=== PATIENT | female | born 1940 | race Caucasian/White ===

== ENCOUNTER 2017-09-04 20:14 | Observation (INO) ==
[2017-09-04 20:48] LABS: Basophils % 0.2 %; Eosinophils % 0.2 %; Hematocrit 39.4 % (35.3-44.9); Lymphocytes # 1.2 K/mcL (0.6-4.6); Lymphocytes % 8.4 %; Mean Corpuscular Hemoglobin 29.3 pg (28.0-33.3); Mean Corpuscular Volume 88.7 fL (83.0-100.0); Mean Platelet Volume 9.5 fL (9.4-12.4); Monocytes % 7.3 %; Neutrophils # 11.6 K/mcL (1.6-8.9); Platelet Count 351 K/mcL (140-400); Red Blood Count 4.44 M/mcL (3.82-4.97); Red Cell Distribution Width 13.4 % (11.5-14.5); Segmented Neutrophils % 82.9 %
[2017-09-04 21:06] LABS: Alanine Aminotransferase 24 Units/L (7-52); Albumin 2.7 g/dL (3.5-5.7); Albumin/Globulin Ratio 0.6 (1.1-2.2); Alkaline Phosphatase 174 Units/L (34-104); Aspartate Amino Transferase 47 Units/L (13-39); BUN/Creatinine Ratio 25 (6-26); Bilirubin,Total 0.6 mg/dL (0.3-1.0); Blood Urea Nitrogen 16 mg/dL (8-23); Calcium 8.8 mg/dL (8.6-10.3); Carbon Dioxide 27 mEq/L (23-29); Chloride 104 mEq/L (98-107); Creatine Kinase 163 Units/L (30-223); Globulin 4.4 g/dL (2.4-3.5); Glucose 84 mg/dL (70-105); Osmolality,Calculated 288 (280-300); Potassium 3.1 mEq/L (3.5-5.1); Sodium 139 mEq/L (136-145); Total Protein 7.1 g/dL (6.4-8.9); eGFR For African Americans > 60 (> 60); eGFR For Non-African Americans > 60 (> 60)
[2017-09-04 21:11] LABS: Troponin I 0.04 ng/mL (< 0.04)
--- NOTE | 2017-09-04 21:33 | Emergency Department Note ---
Disposition Clinical Impression: Generalized weakness Disposition: Admitted As Inpatient Referrals: Huy Jack MD [Primary Care Provider] - Forms: ED Satisfaction Letter Weakness HPI - General Chief complaint: ED Weakness Stated complaint: generalized weakness Time Seen by Provider: 09/04/17 20:15 Source: patient, family Limitations: no limitations Nursing Notes Reviewed: Yes Vital Signs Reviewed: Yes - History of Present Illness HPI Narrative: 68 year female past medical history CHF, diabetes, and hypertension, presents the emergency department with a 2 week history of generalized weakness. Family states that the last 3 or 4 days have been even worse. Associated symptoms include increased confusion, dyspnea, labored breathing, intermittent cough, nausea, diffuse abdominal pain, right hip pain, and increased LE edema bilaterally. She denies any focal weakness, dysphagia, or dysarthria. She denies fevers, chills, chest pain, vomiting, change in bowels, hematochezia, or melena. Pain Scale: 2 - Related Data Home Medications Medication Instructions Recorded Confirmed Ascorbate Calcium [Vitamin C] 500 mg PO BID 10/31/15 10/31/15 Garlic [Odor Free Garlic] 100 mg PO BID 10/31/15 10/31/15 Glimepiride [Amaryl] 0.5 mg PO BID 10/31/15 10/31/15 Glucosamine HCl/Chondr Pinon A Na 1 each PO BID 10/31/15 10/31/15 [[facility] Glucosamine-Chondr Tablet] Meclizine HCl [Verticalm] 25 mg PO DAILY PRN 10/31/15 10/31/15 Metoprolol [Lopressor] 50 mg PO BID 10/31/15 10/31/15 Previous Rx's Medication Instructions Recorded Ciprofloxacin [Cipro] 500 mg PO BID #14 tablet 11/01/15 metroNIDAZOLE [Flagyl] 500 mg PO TID #21 tablet 11/01/15 Allergies Allergy/AdvReac Type Severity Reaction Status Date / Time Sulfa (Sulfonamide Allergy Hives Verified 10/31/15 07:53 Antibiotics) codeine AdvReac Hallucinati Verified 10/31/15 07:53 ng All systems ED: reviewed and negative except as stated. Review of Systems: As Per HPI Past Medical History - Past Medical History Medical history: Reports: CHF, diabetes, hypertension Surgical history: Reports: herniorrhaphy Psychiatric history: Reports: no psych history - Social History Smoking Status: Never smoker Smokeless Tobacco Status: No Alcohol use: Reports: none Drug use: Reports: none Physical Exam - General Limitations: no limitations General appearance: alert, in no apparent distress - Head Head exam: atraumatic, normocephalic, normal inspection - Eye Eye exam: Present: normal appearance, EOMI. Absent: scleral icterus, conjunctival injection - ENT ENT exam: mucous membranes dry - Chest Chest inspection: Present: symmetric chest wall rise - Expanded Respiratory Exam Location: decreased breath sounds: Left, Right, Upper, Lower - Cardiovascular Cardiovascular exam: Present: regular rate, normal rhythm, +S1, +S2 - Abdominal Exam Abdominal exam: Present: soft, tenderness. Absent: guarding, rebound, rigidity , Obando's sign, Rovsing's sign, tenderness at McBurney's Point Abdominal tenderness: Present: diffuse, moderate - Extremities Exam Extremities exam: Present: pedal edema (Pitting edema in bilateral lower extremities). Absent: full ROM, tenderness, normal capillary refill - Neurological Exam Neurological exam: Present: alert, oriented X3 - Skin Skin exam: Present: warm, dry, intact, normal color Course Vital Signs Temperature 98.4 F 09/04/17 20:16 Pulse Rate 78 09/04/17 20:16 Respiratory Rate 22 09/04/17 20:16 Blood Pressure 197/81 09/04/17 20:16 O2 Sat by Pulse Oximetry 94 09/04/17 20:16 Temperature 98.4 F 09/04/17 20:16 Pulse Rate 75 09/04/17 22:31 Respiratory Rate 22 09/04/17 22:31 Blood Pressure 167/75 09/04/17 22:31 O2 Sat by Pulse Oximetry 97 09/04/17 22:31 Oxygen Delivery Oxygen Delivery Nasal Cannula Weakness - MDM Narrative Medical decision making narrative: CBC shows mild elevation of white count at 13.9, but no anemia. BMP shows hypokalemia at 3.1, this is replace potassium. Mild elevations of AST and alkaline phosphatase. Urinalysis still pending at this time due to a complication with the machine and the lab. Albumin is low at 2.7. Troponin 0.04. ECG shows sinus rhythm with left axis deviation and left bundle branch block, but no ST elevation or depression. Chest x-ray shows mild bibasilar atelectasis with no consolidations. CT the abdomen and pelvis completed on 3/8/ 18 showed concerns with a cirrhotic liver with new low attenuation lesions throughout that mentioned concerns for hepatocellular carcinoma versus metastasis. No known history of cancer. Nonfocal exam. Etiology of her constellation of symptoms is not entirely clear at this point, given her increase in extremity edema findings on recent CT her symptoms are at least in part hepatic in nature. Patient will be admitted to the hospital for further evaluation and treatment. - Lab Data Lab results reviewed: Yes I reviewed the patient's lab results. Result diagrams: 09/04/17 20:39 09/04/17 20:39 Lab Results 09/04/17 09/04/17 09/04/17 Range/Units 20:39 20:39 20:39 WBC 13.9 H (4.3-11.1) K/mcL RBC 4.44 (3.82-4.97) M/mcL Hgb 13.0 (11.5-15.4) g/dL Hct 39.4 (35.3-44.9) % MCV 88.7 (83.0-100.0) fL MCH 29.3 (28.0-33.3) pg MCHC 33.0 (31.6-35.5) g/dL RDW 13.4 (11.5-14.5) % Plt Count 351 (140-400) K/mcL MPV 9.5 (9.4-12.4) fL Immature Gran % 1.0 (0-4) % Seg Neutrophils % 82.9 % Lymphocytes % 8.4 % Monocytes % 7.3 % Eosinophils % 0.2 % Basophils % 0.2 % Neutrophils # 11.6 H (1.6-8.9) K/mcL Lymphocytes # 1.2 (0.6-4.6) K/mcL Monocytes # 1.0 (0.0-1.3) K/mcL Eosinophils # 0.0 (0.0-0.6) K/mcL Basophils # 0.0 (0.0-0.2) K/mcL Sodium 139 (136-145) mEq/L Potassium 3.1 L (3.5-5.1) mEq/L Chloride 104 (98-107) mEq/L Carbon Dioxide 27 (23-29) mEq/L BUN 16 (8-23) mg/dL Creatinine 0.64 (0.60-1.20) mg/dL Est GFR ( Amer) > 60 (> 60) Est GFR (Non-Af Amer) > 60 (> 60) BUN/Creatinine Ratio 25 (6-26) Glucose 84 (70-105) mg/dL Calculated Osmolality 288 (280-300) Lactic Acid 1.4 (0.5-2.2) mmol/L Calcium 8.8 (8.6-10.3) mg/dL Total Bilirubin 0.6 (0.3-1.0) mg/dL AST 47 H (13-39) Units/L ALT 24 (7-52) Units/L Alkaline Phosphatase 174 H (34-104) Units/L Creatine Kinase 163 (30-223) Units/L Troponin I 0.04 H* (< 0.04) ng/mL Serum Total Protein 7.1 (6.4-8.9) g/dL Albumin 2.7 L (3.5-5.7) g/dL Globulin 4.4 H (2.4-3.5) g/dL Albumin/Globulin Ratio 0.6 L (1.1-2.2) Urine Color (Yellow) Urine Clarity (Clear) Urine pH (5.0-8.0) pH Units Ur Specific Hope (1.010-1.025) Urine Protein (Neg-Trace) mg/dL Urine Glucose (UA) (Normal) mg/dL Urine Ketones (Negative) mg/dL Urine Blood (Negative) Urine Nitrite (Negative) Urine Bilirubin (Negative) Urine Urobilinogen (Normal) mg/dL Ur Leukocyte Esterase (Negative) Urine Microscopic RBC (0-3) per hpf Urine Microscopic WBC (0-3) per hpf Ur Squamous Epith Cells (None-Few) per lpf Urine Bacteria (None-Few) per hpf Hyaline Casts (None-Few) per lpf Ur Culture Indicated? (NO) 09/04/17 Range/Units 21:10 WBC (4.3-11.1) K/mcL RBC (3.82-4.97) M/mcL Hgb (11.5-15.4) g/dL Hct (35.3-44.9) % MCV (83.0-100.0) fL MCH (28.0-33.3) pg MCHC (31.6-35.5) g/dL RDW (11.5-14.5) % Plt Count (140-400) K/mcL MPV (9.4-12.4) fL Immature Gran % (0-4) % Seg Neutrophils % % Lymphocytes % % Monocytes % % Eosinophils % % Basophils % % Neutrophils # (1.6-8.9) K/mcL Lymphocytes # (0.6-4.6) K/mcL Monocytes # (0.0-1.3) K/mcL Eosinophils # (0.0-0.6) K/mcL Basophils # (0.0-0.2) K/mcL Sodium (136-145) mEq/L Potassium (3.5-5.1) mEq/L Chloride (98-107) mEq/L Carbon Dioxide (23-29) mEq/L BUN (8-23) mg/dL Creatinine (0.60-1.20) mg/dL Est GFR ( Amer) (> 60) Est GFR (Non-Af Amer) (> 60) BUN/Creatinine Ratio (6-26) Glucose (70-105) mg/dL Calculated Osmolality (280-300) Lactic Acid (0.5-2.2) mmol/L Calcium (8.6-10.3) mg/dL Total Bilirubin (0.3-1.0) mg/dL AST (13-39) Units/L ALT (7-52) Units/L Alkaline Phosphatase (34-104) Units/L Creatine Kinase (30-223) Units/L Troponin I (< 0.04) ng/mL Serum Total Protein (6.4-8.9) g/dL Albumin (3.5-5.7) g/dL Globulin (2.4-3.5) g/dL Albumin/Globulin Ratio (1.1-2.2) Urine Color Yellow (Yellow) Urine Clarity Cloudy A (Clear) Urine pH 5.5 (5.0-8.0) pH Units Ur Specific [place] 1.026 H (1.010-1.025) Urine Protein 100 H (Neg-Trace) mg/dL Urine Glucose (UA) Normal (Normal) mg/dL Urine Ketones Negative (Negative) mg/dL Urine Blood Negative (Negative) Urine Nitrite Negative (Negative) Urine Bilirubin Negative (Negative) Urine Urobilinogen Normal (Normal) mg/dL Ur Leukocyte Esterase Negative (Negative) Urine Microscopic RBC 0-3 (0-3) per hpf Urine Microscopic WBC 0-3 (0-3) per hpf Ur Squamous Epith Cells Many H (None-Few) per lpf Urine Bacteria None Seen (None-Few) per hpf Hyaline Casts Few (None-Few) per lpf Ur Culture Indicated? NO (NO) - Radiology Data Radiology results reviewed: Yes I reviewed the patient's radiology results. Chest x-ray shows mild bibasilar atelectasis. - EKG Data EKG attestation: Yes I reviewed and interpreted this EKG. EKG shows normal: sinus rhythm, ST-T waves Rate: normal [place]/QRS: left axis deviation, LBBB Attestation Statement - Attestation Attestation: I, Maninder Warren, examined this patient and my medical decision-making was reviewed with the DIMPLING MACHINE OPERATOR/PA/Advanced Practice Nurse/Resident Physician. I agree with the documented findings, disposition and treatment plan as described except to the extent set forth below. 76-year-old female presents emergency Department with concerns of generalized weakness, fatigue, abdominal pain. Patient had CT of the abdomen performed within the past few days which was negative for acute surgical pathology however did show evidence of cirrhosis and ventral hernia, diverticulosis without diverticulitis. Patient is unable to give a history regarding her case and presentation secondary to increased confusion. She is moving all extremities. Patient has a significant amount of pitting edema bilateral lower extremities. O2 saturation is 98% on 2 L nasal cannula. X-ray of the chest did not show significant infiltrate or other abnormality. Urinalysis was negative for UTI. Patient had elevated troponin at 0.04. Her EKG showed a left bundle-branch block was which was not new from previous exam. Patient will likely be admitted to the hospitalist for further care and evaluation.
[2017-09-04 22:37] LABS: Bilirubin,Urine Negative (Negative); Blood,Urine Negative (Negative); Clarity,Urine Cloudy (Clear); Color,Urine Yellow (Yellow); Glucose,Urine (UA) Normal (Normal); Ketones,Urine Negative (Negative); Leukocyte Esterase,Urine Negative (Negative); Nitrite,Urine Negative (Negative); PH,Urine 5.5 pH Units (5.0-8.0); Protein,Urine 100 mg/dL (Neg-Trace); Specific Gravity,Urine 1.026 (1.010-1.025); Urobilinogen,Urine Normal (Normal)
[2017-09-04 22:44] LABS: Bacteria,Urine None Seen per hpf (None-Few); Hyaline Casts,Urine Few per lpf (None-Few); RBC,Urine 0-3 per hpf (0-3); Squamous Epithelial Cell,Urine Many per lpf (None-Few); WBC,Urine 0-3 per hpf (0-3)
[2017-09-05] MEDS ORDERED: Naloxone 0.4 MG/ML INJ IVP PRN (00:55)
[2017-09-05] MEDS ORDERED: Ringers Solution, Lactated 1,000 ML IVC SCH (01:00)
--- NOTE | 2017-09-05 01:02 | Internal Med History&Physical ---
Date of Encounter: 09/05/17 Time of Encounter: 00:45 Assessment and Plan (1) Abdominal pain Current visit: Yes Status: Acute No acute process per CT scan but patient does have tenderness to palpation on examination. Could be related to abnormal lesions seen him CT scan of the abdomen and pelvis. Will obtain MRI of the abdomen and pelvis. Keep nothing by mouth. Symptomatic treatment for pain and nausea. Moderate risk for complications. Qualifiers: Abdominal location: right lower quadrant Qualified Code(s): R10.31 - Right lower quadrant pain (2) Generalized weakness Current visit: Yes Status: Acute Progressive over the past couple of weeks. Could be related to abnormal lesions. Will consult physical therapy for evaluation. Gentle IV hydration. (3) Cirrhosis of liver Current visit: Yes Status: Chronic CT scan of the abdomen to assess presence of cirrhosis. 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 We will also get hepatitis viral panel. Qualifiers: Hepatic cirrhosis type: unspecified hepatic cirrhosis Ascites presence: unspecified Qualified Code(s): K74.60 - Unspecified cirrhosis of liver (4) Abnormal CT of liver Current visit: Yes Status: Acute Abnormal liver lesions present on CT scan. Will get MRI of the abdomen with liver protocol (5) Diabetes mellitus, type II Current visit: Yes Status: Chronic Monitor blood sugars. Sliding scale insulin. Diabetic diet when patient is able to eat. Qualifiers: Diabetes mellitus senior living insulin use: without senior living use Diabetes mellitus complication status: with hyperglycemia Qualified Code(s): E11.65 - Type 2 diabetes mellitus with hyperglycemia (6) Essential hypertension Current visit: Yes Status: Acute Monitor blood pressure. Resume home medications. (7) Hematuria Current visit: Yes Status: Suspected Recent reports hematuria. However urinalysis in August showing red blood cells. We will monitor for now. Follow results of MRI of her abdomen. Qualifiers: Hematuria type: gross Qualified Code(s): R31.0 - Gross hematuria (8) DVT prophylaxis Current visit: Yes Status: Acute With SCDs alone due to reported hematuria Internal Medicine - H&P: HPI Chief complaint: Generalized weakness, abdominal pain Admitted From: Emergency Dept Plans for Post Hospital Care: Transfer [facility] History of present illness: Ms. Rubio is a 76 year old female patient with a history of essential hypertension, diabetes who presented to the ER with complaints of generalized weakness and abdominal pain. Her symptoms have been going on for 2 weeks. She reports nausea and has not been able to eat anything as a result. She also reports right lower quadrant abdominal pain which was intense 2 weeks back but has since improved. It is nonradiating. No relation to food or activity. She denies any hematemesis or melena. She does report hematuria. She also noted increased lower extremity edema bilaterally. She also reports recent weight loss although she is unable to quantify it at this time. She had undergone CT scan of the abdomen and pelvis 3 days back and was found to have cirrhotic liver with multiple low attenuation lesions with the largest measuring 3.6 x 3.1 cm. There is also a small right adrenal nodule and a small exophytic cyst in the superior left kidney which was similar to prior CT scan. Patient also had a large ventral hernia containing small and large bowel and extensive diverticulosis without diverticulitis. Past Med Surg Social Fam HX - Past Medical History Attestation: Yes The following information was validated with the patient. Source: patient Medical history: CHF, diabetes, hypertension Psychiatric history: no psych history - Past Surgical History Surgical History: herniorrhaphy - Social History Smoking Status: Never smoker Smokeless Tobacco Status: No Alcohol use: none Drug use: none - Family History Father Adopted: No Living Status: Hx Family Cardiac Disorders: Yes Hx Family Cancer: Yes (Brain cancer) Hx Family Endocrine Disorder: Yes (Diabetes) Internal Medicine - H&P: Meds Garlic [Odor Free Garlic] 100 mg PO BID 10/31/15 [History] Glimepiride [Amaryl] 0.5 mg PO BID 10/31/15 [History] Glucosamine HCl/Chondr Pinon A Na [[facility] Glucosamine-Chondr Tablet] 1 each PO BID 11/10 [History] Metoprolol [Lopressor] 50 mg PO BID 10/31/15 [History] metroNIDAZOLE [Flagyl] 500 mg PO TID #21 tablet 11/01/15 [Rx] 3 Allergy/AdvReac Type Severity Reaction Status Date / Time Sulfa (Sulfonamide Allergy Hives Verified 10/31/15 07:53 Antibiotics) codeine AdvReac Hallucinati Verified 10/31/15 07:53 ng All Systems PM: A 10-system review of systems was performed and is negative for pertinent findings except as documented above in the HPI. - Constitutional Constitutional: malaise, weakness, no chills, no fever(s), no night sweats - EENT Eyes: no change in vision, no discharge, no pain, no photophobia Ears: no ear discharge, no ear pain, no tinnitus Nose, mouth and throat: no dysphagia, no nasal discharge, no neck pain, no sore throat - Cardiovascular Cardiovascular ROS IM: edema, no chest pain, no diaphoresis, no dyspnea, no lightheadedness, no palpitations, no syncope - Respiratory Respiratory: no cough, no dyspnea, no wheezing, no excessive phlegm production - Gastrointestinal Gastrointestinal: abdominal pain, nausea - Genitourinary Genitourinary: hematuria, no change in urinary stream, no dysuria, no flank pain - Musculoskeletal Musculoskeletal ROS IM: no numbness, no tingling - Integumentary Integumentary IM: no rash, no unusual bruising - Neurological Neurological ROS: no confusion, no convulsions, no focal weakness, no numbness, no tingling, no tremor(s) - Constitutional Vitals: Temp Pulse Resp BP Pulse Ox 98.4 F 76 20 162/78 97 09/04/17 20:16 09/04/17 23:48 09/04/17 23:48 09/04/17 23:48 09/04/17 23:48 General appearance: Present: cooperative, mild distress, A&O X 3, answers questions appropriately - Neck Neck exam general surgery: Present: supple, trachea midline. Absent: lymphadenopathy - Respiratory Respiratory exam: Present: CTAB. Absent: accessory muscle use, rales, rhonchi, wheezes - Cardiovascular Cardiovascular exam: Present: RRR, +S1, +S2. Absent: diastolic murmur, gallop, rubs, systolic murmur - GI/Abdominal GI/Abdominal exam: Present: normal bowel sounds, soft, tenderness (right lower quadrant), no peritoneal signs. Absent: distended - Extremities Exam Extremities exam: Present: pedal edema, warm, radial pulses palpable and symmetrical. Absent: calf tenderness, cyanotic - Neurological Exam Neurological exam: Present: alert, CN II-XII intact, oriented X3, no focal deficits. Absent: facial droop, speech deficit - Skin Skin exam: Present: dry, intact Internal Med - H&P Results - Labs CBC & Chem 7: 09/04/17 20:39 09/04/17 20:39 - Impressions Impressions Chest X-Ray 09/04/17 20:24 IMPRESSION: Shallow inspiration with mild bibasilar atelectasis. D/ / Tank Hernadez MD / Tank Hernadez MD Interpreting Provider: Tank Hernadez MD
[2017-09-05 01:46] LABS: Hematocrit 37.1 % (35.3-44.9); Hemoglobin 12.2 g/dL (11.5-15.4); Mean Corpuscular HGB Conc 32.9 g/dL (31.6-35.5); Mean Corpuscular Hemoglobin 29.3 pg (28.0-33.3); Mean Platelet Volume 9.6 fL (9.4-12.4); Platelet Count 322 K/mcL (140-400); Red Blood Count 4.17 M/mcL (3.82-4.97); Red Cell Distribution Width 13.5 % (11.5-14.5)
[2017-09-05 01:53] LABS: INR 1.3; Prothrombin Time 14.2 Seconds (9.4-12.1)
[2017-09-05 01:55] LABS: Activated Partial Thrombo Time 28.1 Seconds (26.0-36.0)
[2017-09-05 03:11] LABS: Alanine Aminotransferase 22 Units/L (7-52); Albumin 2.7 g/dL (3.5-5.7); Albumin/Globulin Ratio 0.7 (1.1-2.2); Alkaline Phosphatase 168 Units/L (34-104); Aspartate Amino Transferase 44 Units/L (13-39); BUN/Creatinine Ratio 30 (6-26); Bilirubin,Total 0.6 mg/dL (0.3-1.0); Blood Urea Nitrogen 16 mg/dL (8-23); Calcium 9.1 mg/dL (8.6-10.3); Carbon Dioxide 26 mEq/L (23-29); Chloride 103 mEq/L (98-107); Globulin 4.1 g/dL (2.4-3.5); Glucose 77 mg/dL (70-105); Magnesium 1.7 mg/dL (1.6-2.6); Osmolality,Calculated 284 (280-300); Phosphorous 2.4 mg/dL (2.7-4.5); Potassium 3.2 mEq/L (3.5-5.1); Sodium 137 mEq/L (136-145); Total Protein 6.8 g/dL (6.4-8.9); eGFR For African Americans > 60 (> 60); eGFR For Non-African Americans > 60 (> 60)
[2017-09-05] MEDS ORDERED: Furosemide 20 MG/2 ML VIAL IVP ONE (16:44)
--- NOTE | 2017-09-05 17:31 | Event Note ---
Date of Encounter: 09/05/17 Time of Encounter: 11:30 Seen and examined at bedside. Patient is new to me, information obtained from chart review, patient report and daughter at bedside. Daughter reports overall general, decline in condition over the last 2 years with significant decline over the last couple months. Patient appears extremely weak on exam and is slow to respond. Physical exam: Oriented 4, drowsy but easy to arouse Mildly obese Bilateral lower extremity edema with gross pitting edema Lungs clear to auscultation. (1) Abdominal pain No acute process per CT scan but patient does have tenderness to palpation on examination. Could be related to abnormal lesions seen him CT scan of the abdomen and pelvis. Will obtain MRI of the abdomen and pelvis. Sx's improved on my exam. Start clear liquid diet, advance as patient tolerates. (2) Generalized weakness Progressive over the past couple of weeks. Could be related to abnormal lesions. Will consult physical therapy for evaluation. Gentle IV hydration. (3) Cirrhosis of liver CT scan of the abdomen to assess presence of cirrhosis. 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 hepatitis viral panel pending. (4) Abnormal CT of liver Abnormal liver lesions present on CT scan. Will get MRI of the abdomen with liver protocol (5) Diabetes mellitus, type II Monitor blood sugars. Sliding scale insulin. Diabetic diet when patient is able to eat. (6) Essential hypertension Monitor blood pressure. Resume home medications. (7) Hematuria Recent reports hematuria. However urinalysis in August showing red blood cells. We will monitor for now. Follow results of MRI of her abdomen. (8) DVT prophylaxis With SCDs alone due to reported hematuria (9) Lower extremity edema: Bilateral lower extremity with gross pitting edema. Supposed to be on Lasix at home but patient does not take due to excessive urination. Give one-time dose IV Lasix now, compression wraps to bilateral lower extremities. TTE pending (10) leukocytosis: WBC peaked at 15 K, afebrile, no tachycardia or hypotension. No obvious infectious source. UA not indicative of UTI, CXR without infiltrates/consolidation. Hold on ATB at this time as no obvious infectious source and patient is asymptomatic. Blood cultures, lactic acid pending.
[2017-09-05] MEDS: Nystatin POWDER 30 GM BOTTLE TP SCH ×2 (18:24→21:55)
[2017-09-05] MEDS: Acetaminophen 325 MG TABLET PO PRN (22:05)
[2017-09-06 05:08] LABS: Hemoglobin 12.4 g/dL (11.5-15.4); Mean Corpuscular HGB Conc 32.6 g/dL (31.6-35.5); Mean Corpuscular Hemoglobin 29.2 pg (28.0-33.3); Mean Corpuscular Volume 89.4 fL (83.0-100.0); Mean Platelet Volume 9.7 fL (9.4-12.4); Platelet Count 330 K/mcL (140-400); Red Blood Count 4.25 M/mcL (3.82-4.97); Red Cell Distribution Width 13.4 % (11.5-14.5)
[2017-09-06 05:30] LABS: BUN/Creatinine Ratio 21 (6-26); Blood Urea Nitrogen 13 mg/dL (8-23); Calcium 8.2 mg/dL (8.6-10.3); Carbon Dioxide 29 mEq/L (23-29); Chloride 101 mEq/L (98-107); Glucose 118 mg/dL (70-105); Osmolality,Calculated 283 (280-300); Sodium 136 mEq/L (136-145); eGFR For African Americans > 60 (> 60); eGFR For Non-African Americans > 60 (> 60)
[2017-09-06] MEDS: Nystatin POWDER 30 GM BOTTLE TP SCH ×3 (08:47→22:00)
[2017-09-06 09:43] LABS: Hepatitis A Antibody IgM Nonreactive (Nonreactive); Hepatitis B Core IgM Nonreactive (Nonreactive); Hepatitis B Surface Antigen Nonreactive (Nonreactive); Hepatitis C Virus Antibody Nonreactive (Nonreactive)
[2017-09-06] MEDS ORDERED: *HR* Dextrose 50 % in Water (Syg) 50 ML SYRINGE IVP PRN (13:26)
[2017-09-06] MEDS ORDERED: D5% in Water 1,000 ML IVC PRN (13:26)
[2017-09-06] MEDS ORDERED: Dextrose Gel 15 GM/37.5 ML TUBE PO PRN ×2 (13:26)
--- NOTE | 2017-09-06 14:48 | Internal Med Progress Note ---
Date of Encounter: 09/06/17 Time of Encounter: 14:21 - Assessment and plan (1) Abdominal pain Current Visit: Yes Status: Acute Assessment and plan: ABD MRI with liver lesions as noted above. Abdominal pain resolved as of 09/06 and tolerating regular diet. Hold on further workup at this time. Qualifiers: Abdominal location: right lower quadrant Qualified Code(s): R10.31 - Right lower quadrant pain (2) Liver lesion Current Visit: Yes Status: Acute Assessment and plan: liver MRI shows 6 scattered scattered hepatic lesions concerning for hepatocellular carcinoma, possibly metastatic disease. Initial LFTs I will be elevated, repeat LFTs pending Oncology consulted (3) Diabetes mellitus, type II Current Visit: Yes Status: Chronic Assessment and plan: per hx. holding home oral hypoglycemics. SSI. Monitor blood sugar and titrate PRN Qualifiers: Diabetes mellitus watermaster insulin use: without watermaster use Diabetes mellitus complication status: with hyperglycemia Qualified Code(s): E11.65 - Type 2 diabetes mellitus with hyperglycemia (4) Essential hypertension Current Visit: Yes Status: Acute Assessment and plan: BP uncontrolled on arrival. BP improved with resuming home BP medication. Monitor BP and titrate PRN (5) Generalized weakness Current Visit: Yes Status: Acute Assessment and plan: Progressive over the past couple of weeks; in the setting of possible new malignancy. PT/OT consult (6) Cirrhosis of liver Current Visit: Yes Status: Chronic Assessment and plan: new dx. 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 Hepatitis viral panel negative. Qualifiers: Hepatic cirrhosis type: unspecified hepatic cirrhosis Ascites presence: unspecified Qualified Code(s): K74.60 - Unspecified cirrhosis of liver (7) Lower extremity edema Current Visit: Yes Status: Acute Assessment and plan: Bilateral lower extremity with gross pitting edema. Supposed to be on Lasix at home but patient does not take due to excessive urination. Cont dose IV Lasix, compression wraps to bilateral lower extremities. TTE pending (8) Leukocytosis Current Visit: Yes Status: Acute Assessment and plan: WBC peaked at 15 K, afebrile, no tachycardia or hypotension. Lactic acid normal. No obvious infectious source. UA not indicative of UTI, CXR without infiltrates/consolidation. Hold on ATB at this time as no obvious infectious source and patient is asymptomatic. Blood cultures pending Qualifiers: Leukocytosis type: unspecified Qualified Code(s): D72.829 - Elevated white blood cell count, unspecified (9) DVT prophylaxis Current Visit: Yes Status: Acute Assessment and plan: heparin - Subjective Interval history: Seen and examined, patient is new to me. Information obtained from chart review and patient report. Still complaining of being weak and tired, no significant improvement from yesterday. Lower extremity swelling is somewhat better. She is complaining of bilateral leg pain. No chest pain or shortness of breath. No further abdominal pain and would like to advance diet - Constitutional Vitals: Temp Pulse Resp BP Pulse Ox 98.7 F 82 16 148/74 96 09/06/17 11:18 09/06/17 11:18 09/06/17 11:18 09/06/17 11:18 09/06/17 11:18 General appearance: Present: cooperative, A&O X 3, morbidly obese, answers questions appropriately - Head Head exam: Present: atraumatic, normocephalic - Eye Eye exam: Present: PERRL, conjuntiva pink, sclera anicteric Pupils: Present: PERRL - Neck Neck exam general surgery: Present: supple, trachea midline. Absent: lymphadenopathy - Respiratory Respiratory exam: Present: CTAB. Absent: accessory muscle use, rales, rhonchi, wheezes - Cardiovascular Cardiovascular exam: Present: RRR, +S1, +S2. Absent: diastolic murmur, gallop, rubs, systolic murmur - GI/Abdominal GI/Abdominal exam: Present: normal bowel sounds, soft, no peritoneal signs. Absent: distended, tenderness - Extremities Exam Extremities exam: Present: pedal edema, warm, radial pulses palpable and symmetrical. Absent: calf tenderness, cyanotic - Neurological Exam Neurological exam: Present: CN II-XII intact, oriented X3, no focal deficits. Absent: pronater drift, facial droop, speech deficit - Skin Skin exam: Present: dry, intact Internal Medicine: Result - Labs CBC & Chem 7: 09/06/17 03:32 09/06/17 03:32 Labs: Short CBC 09/06/17 Range/Units 03:32 WBC 12.5 H (4.3-11.1) K/mcL Hgb 12.4 (11.5-15.4) g/dL Hct 38.0 (35.3-44.9) % Plt Count 330 (140-400) K/mcL BMP 09/06/17 03:32 Sodium 136 Potassium 4.0 Chloride 101 Carbon Dioxide 29 BUN 13 Creatinine 0.63 Glucose 118 H Calcium 8.2 L - ABG Interpretation ABG results: PT/INR, D-dimer PT 14.2 Seconds (9.4-12.1) H 09/05/17 01:29 - Impressions Impressions Abdomen Ultrasound 09/06/17 09:00 IMPRESSION: Several hypoechoic liver lesions worrisome for metastatic disease. Mild cirrhotic changes appreciated. No perihepatic ascites identified. D/ / Edmund Macario MD / Edmund Macario MD Interpreting Provider: Edmund Macario MD Abdomen MRI 09/06/17 09:47 IMPRESSION: 1. There are 6 scattered scattered peripherally enhancing hepatic lesions ranging from 3 cm to 4.8 cm which in the setting of cirrhosis could represent hepatocellular carcinoma of a multiplicity favors metastatic disease. The largest measures 4.8 cm in segment 6. A few other tiny subcentimeter lesions are also present. 2. A 1.7 cm lipid rich right adrenal adenoma. D/ / Alonzo Arnett MD / Alonzo Arnett MD Interpreting Provider: Alonzo Arnett MD Consult Discharge Plan - Plan Referrals: Huy Jack MD [Primary Care Provider] -
[2017-09-06] MEDS ORDERED: Ketorolac 30 MG/ML VIAL IVP ONE (15:33)
[2017-09-06] MEDS: Furosemide 40 MG/4 ML VIAL IVP SCH (16:22)
[2017-09-06 16:47] LABS: Alanine Aminotransferase 20 Units/L (7-52); Albumin 2.3 g/dL (3.5-5.7); Albumin/Globulin Ratio 0.6 (1.1-2.2); Alkaline Phosphatase 151 Units/L (34-104); Aspartate Amino Transferase 35 Units/L (13-39); Bilirubin,Direct 0.2 mg/dL (0.0-0.2); Bilirubin,Indirect 0.6 mg/dL (0.0-1.2); Bilirubin,Total 0.8 mg/dL (0.3-1.0); Globulin 3.7 g/dL (2.4-3.5)
--- NOTE | 2017-09-06 18:04 | Oncology Inp Consult Note ---
<Charlee Savage Jeni - Last Filed: 09/07/17 14:42> Date of Encounter: 09/06/17 Time of Encounter: 16:30 Assessment and Plan (1) Abnormal CT of liver Status: Acute Assessment and plan: Dr. Shoemaker I discussed abdominal MRI results with patient and patient's family in detail which are concerning for hepatocellular carcinoma or malignancy of other origin/primary. Given the multiplicity of lesions, imaging is concerning for metastatic disease in the setting of newly diagnosed cirrhosis. Cirrhosis of unclear etiology at this time. I had quite a lengthy discussion with patient and patients family regarding images and options for next steps. Options including a more aggressive approach with biopsy, further imaging studies for staging and discussion on appropriate treatment options. The patients family preemptively asked about other option besides less aggressive approach which included a discussion on hospice and the hospice philosophy. Ultimately, the patient and patients family wish to discuss these options further overnight, I will round with the patient/family tomorrow to discuss options further and help to answer any other questions. Patient appears to be of quite poor functional status and has declined quite quickly over the past 2 weeks according to family. She does have neutrophil predominant leukocytosis with no identified source of infection. This may be leukemoid reaction to cirrhosis, however, would recommend to continue to monitor for other etiology. Of note, she also has a left parotid mass noted of soft tissue neck CT, MRI was recommended for further characterization and the mass would be amendable to biopsy. Patient appears to be asymptomatic with no reported issues related to the palpable mass. About 25% of parotid tumors are found to be malignant, and it is unlikely that this is related to her liver findings. If family decide to take more aggressive treatment approach, further workup and potential biopsy/ treatment discussion may be entertained on outpatient basis. As noted above, family and patient are to discuss further goals of care after our discussion today. Will round tomorrow for further decision making and discussion. I will check CEA and AFP tumor markers in the meantime. Please refer to Dr. Shoemaker's attestation for additional details. - Data of Consult Patient: new to practice Consult date: 09/06/17 Requesting Physician: Faith Juarez CNP Primary Care Provider: Huy Jack MD - Consult Narrative History of present illness: Ms. Rubio is a 76 year old female with past history significant for hypertension, diabetes and CHF. She presented to the hospital on 09/04/2017 with complaints of generalized weakness, nausea, anorexia and RUQ abdominal pain x2 weeks. She has had recent change in functional status and mental status over the past 2 weeks for which her family has been taking her for follow-up with her PCP. She has had multiple imaging studies ordered a few days prior to her ER presentation including an abdomen and pelvis CT, head CT, soft tissue neck CT, knee x-ray and chest x-ray. Abdomen/Pelvis CT did reveal cirrhotic liver with several new low-attenuation lesions which were incompletely evaluated on this study, large ventral hernia is again seen containing small and large bowel and extensive diverticulosis without evidence of diverticulitis. CT head had no acute findings. CT neck did reveal a solid mass lesion within the superficial lobe of the left parotid gland measuring 2.0 x 1.6 x 2.4 cm , abutting the posterior margin of the retromandibular vein. CXR did show Shallow inspiration with mild bibasilar atelectasis. Left knee xray with evidence of osteoarthritis. Abdominal MRI for better characterization of liver lesions did reveal 6 scattered scattered peripherally enhancing hepatic lesions ranging from 3 cm to 4.8 cm which in the setting of cirrhosis could represent hepatocellular carcinoma of a multiplicity favors metastatic disease and a 1.7 cm lipid rich right adrenal adenoma. She has no history of cirrhosis diagnosis, family state she had CT of her abdomen about 2 years ago with no acute findings at that time. She has no history of alcohol use. She has never smoked. Her hepatitis panel is negative. Her AST/ALT/Ammonia levels are normal. Cirrhosis is of unclear etiology at this time. Ms. Rubio's last colonoscopy was about 5 years ago per family. She has a home with her and 2 sons. With the past 2 weeks she has experienced profound weakness and her functional status has markedly declined. She has not ambulated in approximately 2 weeks. Within the past 2 weeks she has also experienced anorexia, nausea and weight loss. They have also noted mental status changes and patient appears to be quite drowsy. Past Med Surg Social Fam HX - Past Medical History Medical history: CHF, diabetes, hypertension Psychiatric history: no psych history - Past Surgical History Surgical History: herniorrhaphy - Social History Smoking Status: Never smoker Smokeless Tobacco Status: No Alcohol use: none Drug use: none - Family History Father Adopted: No Living Status: Hx Family Cardiac Disorders: Yes Hx Family Cancer: Yes (brain) Hx Family Endocrine Disorder: Yes (dm) Medications and Allergies Garlic [Odor Free Garlic] 100 mg PO BID 10/31/15 [History] Glimepiride [Amaryl] 0.5 mg PO BID 10/31/15 [History] Glucosamine HCl/Chondr Pinon A Na [Cvs Glucosamine-Chondr Tablet] 1 each PO BID 11/10 [History] Metoprolol [Lopressor] 50 mg PO BID 10/31/15 [History] Meclizine HCl [Verticalm] 25 mg PO TID PRN 09/05/17 [History] 3 Allergy/AdvReac Type Severity Reaction Status Date / Time Sulfa (Sulfonamide Allergy Hives Verified 09/05/17 11:46 Antibiotics) codeine AdvReac Hallucinati Verified 09/05/17 11:46 ng Constitutional: Present: as per HPI, anorexia, fatigue, malaise, weakness, weight loss. Absent: chills, fever(s), frequent falls Eyes: Present: as per HPI, blurry vision (chronic blurry vision), change in vision Additional comments: palpable left partoid mass, she denies difficulty/pain with chewing, dysphagia or facial pain Cardiovascular: Absent: chest pain, irregular heart rhythm, palpitations Respiratory: Absent: cough, dyspnea Gastrointestinal: Present: as per HPI, abdominal pain, nausea. Absent: dysphagia, hematemesis, hematochezia, vomiting Musculoskeletal: Present: arthralgias. Absent: numbness, tingling Integumentary: Absent: wounds Neurological: Present: as per HPI, confusion, weakness. Absent: focal weakness , frequent falls, loss of vision, numbness, tingling Hematologic/Lymphatic: Present: as per HPI Oncology - Exam - Constitutional Vitals: Temp Pulse Resp BP Pulse Ox 98.3 F 83 16 144/73 93 09/06/17 15:54 09/06/17 15:54 09/06/17 15:54 09/06/17 15:54 09/06/17 15:54 General appearance: cooperative, no acute distress, obese, no febrile - Head Head exam: Present: atraumatic - ENT ENT exam: Present: mucous membranes moist - Respiratory Respiratory exam: Present: CTAB. Absent: respiratory distress - Cardiovascular Cardiovascular exam: Present: RRR, +S1, +S2 - GI/Abdominal GI/Abdominal exam: Present: normal bowel sounds, soft, tenderness. Absent: guarding, rebound - Extremities Exam Extremities exam: Present: pedal edema. Absent: calf tenderness Additional comments: BLE edema, pema wraps to BLE - Back Exam Back exam: Present: tenderness - Neurological Exam Neurological exam: Present: alert, oriented X3, no focal deficits, strengths equal and symetr throughout Additional comments: weakness noted with upper and lower muscle strength 3/5 bilaterally - Psychiatric Psychiatric exam: Present: flat affect - Skin Skin exam: Present: pallor, warm Oncology - Results Labs: Short CBC 09/06/17 Range/Units 03:32 WBC 12.5 H (4.3-11.1) K/mcL Hgb 12.4 (11.5-15.4) g/dL Hct 38.0 (35.3-44.9) % Plt Count 330 (140-400) K/mcL BMP 09/06/17 03:32 Sodium 136 Potassium 4.0 Chloride 101 Carbon Dioxide 29 BUN 13 Creatinine 0.63 Glucose 118 H Calcium 8.2 L Cardiac Enzymes 09/06/17 Range/Units 15:44 Troponin I 0.03 (< 0.04) ng/mL Liver Function 09/06/17 Range/Units 03:32 Total Bilirubin 0.8 (0.3-1.0) mg/dL Direct Bilirubin 0.2 (0.0-0.2) mg/dL AST 35 (13-39) Units/L ALT 20 (7-52) Units/L Alkaline Phosphatase 151 H (34-104) Units/L Albumin 2.3 L (3.5-5.7) g/dL Consult Discharge Plan - Plan Referrals: Huy Jack MD [Primary Care Provider] - <John Quinn - Last Filed: 09/07/17 15:24> Date of Encounter: 09/07/17 - Data of Consult Requesting Physician: Faith Juarez CNP Primary Care Provider: Huy Jack MD - Consult Narrative History of present illness: I examined this patient and my medical decision-making was reviewed with the Advanced Practice Nurse, Charlee Savage. I agree with the documented findings, disposition and treatment plan as described except to the extent set forth below. Oncology - Exam - Constitutional Vitals: Temp Pulse Resp BP Pulse Ox 98.7 F 81 16 170/85 97 09/07/17 11:48 09/07/17 11:48 09/07/17 11:48 09/07/17 11:48 09/07/17 11:48 Oncology - Results Labs: Short CBC 09/07/17 Range/Units 04:22 WBC 14.2 H (4.3-11.1) K/mcL Hgb 10.9 L D (11.5-15.4) g/dL Hct 34.0 L (35.3-44.9) % Plt Count 307 (140-400) K/mcL BMP 09/07/17 04:22 Sodium 136 Potassium 3.9 Chloride 102 Carbon Dioxide 25 BUN 15 Creatinine 0.53 L Glucose 123 H Calcium 8.1 L Cardiac Enzymes 09/06/17 09/06/17 Range/Units 15:44 20:48 Troponin I 0.03 < 0.03 (< 0.04) ng/mL Liver Function 09/06/17 09/07/17 Range/Units 03:32 04:22 Total Bilirubin 0.8 0.6 (0.3-1.0) mg/dL Direct Bilirubin 0.2 (0.0-0.2) mg/dL AST 35 33 (13-39) Units/L ALT 20 18 (7-52) Units/L Alkaline Phosphatase 151 H 152 H (34-104) Units/L Albumin 2.3 L 2.2 L (3.5-5.7) g/dL
[2017-09-06] MEDS: Insulin LISPRO 300 UNITS/3 ML VIAL SQ SCH ×2 (18:59→22:01)
--- NOTE | 2017-09-06 19:45 | Electrocardiograph Report ---
[place] [id number] Test Date: 2017-09-04 Pat Name: Bianka Rubio Department: 104 Room: 3B14 Gender: F [employer] Supervisor: MARGUERITE : 1940 Requested By: Maninder Warren Order Number: [id number] Reading MD: Jamie Mancuso MD Measurements Intervals [place] Rate: 76 P: 57 RI: 157 QRS: -48 QRSD: 173 T: 85 QT: 422 QTc: 453 Interpretive Statements SINUS RHYTHM MARKED LEFT AXIS DEVIATION LEFT BUNDLE BRANCH BLOCK Electronically Signed On 09-06-2017 19:43:49 EDT by Jamie Mancuso MD
[2017-09-07 05:03] LABS: Hemoglobin 10.9 g/dL (11.5-15.4); Mean Corpuscular HGB Conc 32.1 g/dL (31.6-35.5); Mean Corpuscular Hemoglobin 28.6 pg (28.0-33.3); Mean Corpuscular Volume 89.2 fL (83.0-100.0); Mean Platelet Volume 9.7 fL (9.4-12.4); Platelet Count 307 K/mcL (140-400); Red Blood Count 3.81 M/mcL (3.82-4.97); Red Cell Distribution Width 13.2 % (11.5-14.5)
[2017-09-07 05:20] LABS: Alanine Aminotransferase 18 Units/L (7-52); Albumin 2.2 g/dL (3.5-5.7); Albumin/Globulin Ratio 0.6 (1.1-2.2); Alkaline Phosphatase 152 Units/L (34-104); Aspartate Amino Transferase 33 Units/L (13-39); BUN/Creatinine Ratio 28 (6-26); Bilirubin,Total 0.6 mg/dL (0.3-1.0); Blood Urea Nitrogen 15 mg/dL (8-23); Calcium 8.1 mg/dL (8.6-10.3); Carbon Dioxide 25 mEq/L (23-29); Chloride 102 mEq/L (98-107); Globulin 3.4 g/dL (2.4-3.5); Glucose 123 mg/dL (70-105); Osmolality,Calculated 284 (280-300); Potassium 3.9 mEq/L (3.5-5.1); Sodium 136 mEq/L (136-145); Total Protein 5.6 g/dL (6.4-8.9); eGFR For African Americans > 60 (> 60); eGFR For Non-African Americans > 60 (> 60)
[2017-09-07] MEDS: Insulin LISPRO 300 UNITS/3 ML VIAL SQ SCH ×4 (08:12→20:31)
[2017-09-07] MEDS: Furosemide 40 MG/4 ML VIAL IVP SCH (10:09)
[2017-09-07] MEDS: Nystatin POWDER 30 GM BOTTLE TP SCH ×3 (10:13→20:36)
[2017-09-07] MEDS: Acetaminophen 325 MG TABLET PO PRN (14:30)
--- NOTE | 2017-09-07 14:51 | Oncology Inp Progress Note ---
Date of Encounter: 09/07/17 Time of Encounter: 11:00 (1) Abnormal CT of liver Current Visit: Yes Status: Acute Assessment and plan: Ms. Rubio's abdominal MRI displays multiple liver lesions concerning for hepatocellular carcinoma or malignancy of other primary along with newly found cirrhosis. Cirrhosis of unclear etiology at this time. I have ordered iron studies for further assessment. CEA has resulted at 1.2 and her abdomen/pelvis MRI did not reveal any abdominal findings concerning for metastases, making GI origin unlikely, however, still possible unless ruled out by scoping. AFP pending. I again, discussed imaging results with patients other son and daughter in law who were not present during yesterday's meeting. There appears to have been some misconceptions and further questions following yesterday's meeting which I helped to answer. They have not yet come to a conclusion on goals of care at this time and whether or not they wish to pursue an aggressive treatment approach vs hospice. Patient states she has not yet decided if she would like biopsy. She does have neutrophil predominant leukocytosis with no identified source of infection. This may be leukemoid reaction to cirrhosis, however, would recommend to continue to monitor for other etiology. Of note, she also has a left parotid mass noted of soft tissue neck CT, MRI was recommended for further characterization and the mass would be amendable to biopsy. Patient appears to be asymptomatic with no reported issues related to the palpable mass. About 25% of parotid tumors are found to be malignant, and it is unlikely that this is related to her liver findings. If family decide to take more aggressive treatment approach, further workup and potential biopsy/ treatment discussion may be entertained on outpatient basis. I rounded back by patients room this afternoon to discuss decision on goals of care,however, no family were present. Oncology: Subj Interval history: Ms. Rubio is resting in bed with her son and daughter in law at bedside. She reports her pain is manageable and controlled with medication at this time. Her pain is localized to her right upper abdomen. She continues to feel quite weak and seems very fatigued today. - Constitutional Vitals: Vital Signs Temp Pulse Resp BP Pulse Ox 09/07/17 11:48 98.7 F 81 16 170/85 97 09/07/17 07:06 98.3 F 79 18 134/73 97 09/07/17 03:01 99 F 80 16 150/74 98 09/06/17 22:54 98.5 F 77 16 160/78 100 09/06/17 18:41 97.5 F L 89 16 113/76 96 09/06/17 15:54 98.3 F 83 16 144/73 93 Intake and Output 09/06/17 09/07/17 09/07/17 23:59 07:59 15:59 Other: # Urine Diapers 1 1 Weight 87.589 kg Blood Glucose* 110 113 Patient Weight 09/07/17 23:59 Weight 87.589 kg General appearance: cooperative, no acute distress, no febrile - Head Head exam: Present: atraumatic - ENT ENT exam: Present: mucous membranes moist - Respiratory Respiratory exam: Present: CTAB. Absent: respiratory distress - Cardiovascular Cardiovascular exam: Present: RRR, +S1, +S2 - GI/Abdominal GI/Abdominal exam: Present: normal bowel sounds, soft, tenderness - Extremities Exam Extremities exam: Absent: calf tenderness Additional comments: BLE Edema- pema bandages bilat - Neurological Exam Neurological exam: Present: alert, oriented X3, no focal deficits, strengths equal and symetr throughout - Psychiatric Psychiatric exam: Present: normal affect, normal mood - Skin Skin exam: Present: pallor, warm Oncology: Obj Data - Labs CBC & Chem 7: 09/08/17 04:54 09/07/17 04:22 - Impressions Impressions Echocardiogram 09/06/17 11:30 Impressions: LVEF 50-55%. Not all LV wall segments are well visualized. Mild concentric left ventricular hypertrophy. Atypical septal motion consistent with bundle branch block. Mild left ventricular diastolic dysfunction. Normal right ventricular structure and function. Mild mitral regurgitation. Mild tricuspid regurgitation. Borderline pulmonary hypertension. Left Ventricular Wall Motion: Rest Echo Findings The mid anterior and basal anterior amaya were not visualized. All other wall segments showed normal motion. Findings: Study Quality * Technically adequate exam. ECG Findings * Sinus rhythm with BBB. Left Ventricle * LVEF 50-55%. * Mild concentric left ventricular hypertrophy. * Normal LV size. * Atypical septal motion consistent with bundle branch block. * Mild left ventricular diastolic dysfunction. Right Ventricle * Normal right ventricular structure and function. Left Atrium * Moderately dilated left atrium. Right Atrium * Normal right atrial size. Mitral Valve * Normal mitral valve structure. * No mitral stenosis. * Mild mitral annular calcification * Mild mitral regurgitation. Aortic Valve * No aortic regurgitation. * Trileaflet aortic valve. * No aortic stenosis. Tricuspid Valve * Normal tricuspid valve structure. * Mild tricuspid regurgitation. * Estimated RA pressure is 8 mmHg. * Estimated RVSP is 34 mmHg. * Borderline pulmonary hypertension. Pulmonic Valve * Pulmonic valve is not well visualized. * No pulmonic stenosis. * No pulmonic regurgitation. Pulmonary Artery * Pulmonary artery not well visualized. Aorta * Normally sized aortic root. Pericardium * There is no pericardial effusion present. Interatrial Septum * Interatrial septum not well evaluated. IVC * The IVC is not dilated. * < 50% respiratory change. - ABG Interpretation ABG results: PT/INR, D-dimer PT 14.2 Seconds (9.4-12.1) H 09/05/17 01:29 Consult Discharge Plan - Plan Referrals: Huy Jack MD [Primary Care Provider] -
[2017-09-07 15:41] LABS: Ferritin 524 ng/ml (10-120); Iron < 10 mcg/dL (50-170); Transferrin 132 mg/dL (203-362)
--- NOTE | 2017-09-07 15:46 | Internal Med Progress Note ---
Date of Encounter: 09/07/17 Time of Encounter: 08:30 - Time Spent With Patient (1) Abdominal pain Current Visit: Yes Status: Acute Assessment and plan: Suspect secondary to possible liver leniency. Abdominal pain resolved as of and tolerating regular diet. Qualifiers: Abdominal location: right lower quadrant Qualified Code(s): R10.31 - Right lower quadrant pain (2) Liver lesion Current Visit: Yes Status: Acute Assessment and plan: liver MRI shows 6 scattered hepatic lesions concerning for hepatocellular carcinoma, possibly metastatic disease. Initial LFTs elevated, repeat LFTs stable. Evaluated by oncology who recommended liver biopsy however patient and family undecided at this time. Of note outpatient soft neck CT showed left parotid mass for which an MRI was recommended for further characterization and patient/family refusing at this time as well. Patient and family are considering options including CODE STATUS and goals of care. Hold on further workup at this time. Await patient/family final decision. Oncology following (3) Diabetes mellitus, type II Current Visit: Yes Status: Chronic Assessment and plan: per hx. holding home oral hypoglycemics. SSI. Monitor blood sugar and titrate PRN Qualifiers: Diabetes mellitus half-way insulin use: without watermelon harvesting supervisor use Diabetes mellitus complication status: with hyperglycemia Qualified Code(s): E11.65 - Type 2 diabetes mellitus with hyperglycemia (4) Essential hypertension Current Visit: Yes Status: Acute Assessment and plan: BP uncontrolled on arrival. BP improved with resuming home BP medication. Monitor BP and titrate PRN (5) Generalized weakness Current Visit: Yes Status: Acute Assessment and plan: Progressive over the past couple of weeks; in the setting of possible new malignancy. PT/OT recommending SNF (6) Cirrhosis of liver Current Visit: Yes Status: Chronic Assessment and plan: new dx. 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 Hepatitis viral panel negative. Qualifiers: Hepatic cirrhosis type: unspecified hepatic cirrhosis Ascites presence: unspecified Qualified Code(s): K74.60 - Unspecified cirrhosis of liver (7) Lower extremity edema Current Visit: Yes Status: Acute Assessment and plan: Bilateral lower extremity with gross pitting edema. Supposed to be on Lasix at home but patient does not take due to excessive urination. IV Lasix ordered inpatient however she is refusing due to frequent urination. She is also refusing lower extremity compression wraps. (8) Leukocytosis Current Visit: Yes Status: Acute Assessment and plan: WBC peaked at 15 K, afebrile, no tachycardia or hypotension. Lactic acid normal. No obvious infectious source. UA not indicative of UTI, CXR without infiltrates/consolidation. Hold on ATB at this time as no obvious infectious source and patient is asymptomatic. Blood cultures pending Qualifiers: Leukocytosis type: unspecified Qualified Code(s): D72.829 - Elevated white blood cell count, unspecified (9) DVT prophylaxis Current Visit: Yes Status: Acute Assessment and plan: heparin - Subjective Interval history: Seen and examined at bedside. She is drowsy and lethargic this morning. Took several minutes to arouse. She is oriented 4 however remains lethargic. No family at bedside for collateral. She tells me she does not want to move forward with liver biopsy at this time. - Constitutional Vitals: Temp Pulse Resp BP Pulse Ox 98.7 F 81 16 170/85 97 09/07/17 11:48 09/07/17 11:48 09/07/17 11:48 09/07/17 11:48 09/07/17 11:48 General appearance: Present: cooperative, A&O X 3, morbidly obese, answers questions appropriately - Head Head exam: Present: atraumatic, normocephalic - Eye Eye exam: Present: PERRL, conjuntiva pink, sclera anicteric Pupils: Present: PERRL - Neck Neck exam general surgery: Present: supple, trachea midline. Absent: lymphadenopathy - Respiratory Respiratory exam: Present: CTAB. Absent: accessory muscle use, rales, rhonchi, wheezes - Cardiovascular Cardiovascular exam: Present: RRR, +S1, +S2. Absent: diastolic murmur, gallop, rubs, systolic murmur - GI/Abdominal GI/Abdominal exam: Present: normal bowel sounds, soft, no peritoneal signs. Absent: distended, tenderness - Extremities Exam Extremities exam: Present: pedal edema, warm, radial pulses palpable and symmetrical. Absent: calf tenderness, cyanotic - Neurological Exam Neurological exam: Present: CN II-XII intact, oriented X3, no focal deficits. Absent: pronater drift, facial droop, speech deficit - Skin Skin exam: Present: dry, intact Internal Medicine: Result - Labs CBC & Chem 7: 09/07/17 04:22 09/07/17 04:22 Labs: Short CBC 09/07/17 Range/Units 04:22 WBC 14.2 H (4.3-11.1) K/mcL Hgb 10.9 L D (11.5-15.4) g/dL Hct 34.0 L (35.3-44.9) % Plt Count 307 (140-400) K/mcL BMP 09/07/17 04:22 Sodium 136 Potassium 3.9 Chloride 102 Carbon Dioxide 25 BUN 15 Creatinine 0.53 L Glucose 123 H Calcium 8.1 L Cardiac Enzymes 09/06/17 09/06/17 Range/Units 15:44 20:48 Troponin I 0.03 < 0.03 (< 0.04) ng/mL Liver Function 09/06/17 09/07/17 Range/Units 03:32 04:22 Total Bilirubin 0.8 0.6 (0.3-1.0) mg/dL Direct Bilirubin 0.2 (0.0-0.2) mg/dL AST 35 33 (13-39) Units/L ALT 20 18 (7-52) Units/L Alkaline Phosphatase 151 H 152 H (34-104) Units/L Albumin 2.3 L 2.2 L (3.5-5.7) g/dL - ABG Interpretation ABG results: PT/INR, D-dimer PT 14.2 Seconds (9.4-12.1) H 09/05/17 01:29 - Impressions Impressions Echocardiogram 09/06/17 11:30 Impressions: LVEF 50-55%. Not all LV wall segments are well visualized. Mild concentric left ventricular hypertrophy. Atypical septal motion consistent with bundle branch block. Mild left ventricular diastolic dysfunction. Normal right ventricular structure and function. Mild mitral regurgitation. Mild tricuspid regurgitation. Borderline pulmonary hypertension. Left Ventricular Wall Motion: Rest Echo Findings The mid anterior and basal anterior amaya were not visualized. All other wall segments showed normal motion. Findings: Study Quality * Technically adequate exam. ECG Findings * Sinus rhythm with BBB. Left Ventricle * LVEF 50-55%. * Mild concentric left ventricular hypertrophy. * Normal LV size. * Atypical septal motion consistent with bundle branch block. * Mild left ventricular diastolic dysfunction. Right Ventricle * Normal right ventricular structure and function. Left Atrium * Moderately dilated left atrium. Right Atrium * Normal right atrial size. Mitral Valve * Normal mitral valve structure. * No mitral stenosis. * Mild mitral annular calcification * Mild mitral regurgitation. Aortic Valve * No aortic regurgitation. * Trileaflet aortic valve. * No aortic stenosis. Tricuspid Valve * Normal tricuspid valve structure. * Mild tricuspid regurgitation. * Estimated RA pressure is 8 mmHg. * Estimated RVSP is 34 mmHg. * Borderline pulmonary hypertension. Pulmonic Valve * Pulmonic valve is not well visualized. * No pulmonic stenosis. * No pulmonic regurgitation. Pulmonary Artery * Pulmonary artery not well visualized. Aorta * Normally sized aortic root. Pericardium * There is no pericardial effusion present. Interatrial Septum * Interatrial septum not well evaluated. IVC * The IVC is not dilated. * < 50% respiratory change. Consult Discharge Plan - Plan Referrals: Huy Jack MD [Primary Care Provider] -
[2017-09-08 05:21] LABS: Hemoglobin 11.7 g/dL (11.5-15.4); Mean Platelet Volume 9.5 fL (9.4-12.4)
[2017-09-08 05:22] LABS: Hematocrit 36.2 % (35.3-44.9); Mean Corpuscular HGB Conc 32.3 g/dL (31.6-35.5); Mean Corpuscular Hemoglobin 28.8 pg (28.0-33.3); Mean Corpuscular Volume 89.2 fL (83.0-100.0); Platelet Count 364 K/mcL (140-400); Red Blood Count 4.06 M/mcL (3.82-4.97); Red Cell Distribution Width 13.3 % (11.5-14.5)
[2017-09-08] MEDS: Insulin LISPRO 300 UNITS/3 ML VIAL SQ SCH ×4 (08:00→20:41)
[2017-09-08] MEDS: Nystatin POWDER 30 GM BOTTLE TP SCH ×3 (08:00→23:33)
[2017-09-08] MEDS: Furosemide 40 MG/4 ML VIAL IVP SCH (08:00)
--- NOTE | 2017-09-08 11:31 | Palliative - Consult Note ---
Date of Encounter: 09/08/17 Time of Encounter: 11:00 - Assessment and Plan (1) Abdominal pain Current Visit: Yes Status: Acute Assessment and plan: Continued abdominal pain, tenderness, and rigidity. Will add PRN pain medication for control of pain. Added Ibuprofen, as had taken at home and tolerated well; added Oxycodone for more severe pain. Please monitor closely for adverse reaction with Oxycodone as adverse reaction of codeine hallucination. Qualifiers: Abdominal location: right lower quadrant Qualified Code(s): R10.31 - Right lower quadrant pain (2) Nausea Current Visit: Yes Status: Acute Assessment and plan: Patient complains of nausea, upset stomach. Will order PRN Zofran for nausea. (3) Debility, unspecified Current Visit: Yes Status: Acute Assessment and plan: Patient unable to care for set, difficulty to stand up write and requires us of walker. PT already consulted, continue therapy as patient allows. Family unable to care for her at discharge presently. SW assisting with DC planning. (4) Generalized weakness Current Visit: Yes Status: Acute Assessment and plan: Patient reports continued weakness, family reports 3-4 people to stand her up today. Continue to work with PT for increase in strength as patient wishes. (5) Goals of care, counseling/discussion Current Visit: Yes Status: Acute Assessment and plan: Discussed goals of care with patient; patient wishes to go home and stay comfortable until her passing. Discussed options if patient continues to refuse diagnostics and treatment, home with hospice versus ECF with rehab versus ECF with hospice. [facility] report due to finances, unable to private pay ECF and believes patient would not participate in rehabilitation and would require addition transition once unable to have insurance pay for ECF. [facility] reported they believe they have already completed DPOA forms, requested to bring a copy for review. Requested to speak with SW for options related to private home care to care for patient while daughters are at work. Continued conversation to evaluate if patient had ever mentioned code status wishes, both reported that patient would not want on life support or CPR performed. Awoke patient and patient reiterated that she would not want CPR in life support; explained two options for code status in the [facility], changed code status to DNR CCA-DNI, per patient's wishes. SW notified of family needs. Offered to set up family meeting to discuss options and left phone number for contact. Will continue to follow. (6) Lower extremity edema Current Visit: Yes Status: Acute Assessment and plan: BLE 3+ edema present. Lasix ordered per hospitalist. (7) Abnormal CT of liver Current Visit: Yes Status: Acute (8) Essential hypertension Current Visit: Yes Status: Acute (9) Liver lesion Current Visit: Yes Status: Acute (10) Cirrhosis of liver Current Visit: Yes Status: Chronic Qualifiers: Hepatic cirrhosis type: unspecified hepatic cirrhosis Ascites presence: unspecified Qualified Code(s): K74.60 - Unspecified cirrhosis of liver (11) Diabetes mellitus, type II Current Visit: Yes Status: Chronic Qualifiers: Diabetes mellitus watermelon inspector insulin use: without watermelon inspector use Diabetes mellitus complication status: with hyperglycemia Qualified Code(s): E11.65 - Type 2 diabetes mellitus with hyperglycemia Palliative-CN HPI - Data of Consult Patient: new to practice Consult date: 09/08/17 Requesting Physician: Faith Juarez CNP Primary Care Provider: Huy Jack MD - Consult Narrative Palliative Care/Comfort Measures: Palliative care Reason for consult: Goals of care and code status. History of present illness: Ms. Rubio is a 76 year old female arrived to [facility] 09/04/17 with generalized weakness, continued dibility times two weeks that had been worsening for 3-4 days, abdominal pain, and BLE edema. Diagnosed with: Abdominal pain, general weakness, cirrhosis of liver, abnormal CT of liver, and hematuria. PMH: CHF, DMT2, and HTN. Original chest x-ray showed: The cardiac silhouette is mildly enlarged. Mild bibasilar atelectasis. Abdominal ultrasound performed; showing: Several hypoechoic liver lesions worrisome for metastatic disease. Mild cirrhotic changes. No perihepatic ascites. MRI performed, showin scattered scattered peripherally enhancing hepatic lesions ranging from 3 cm to 4.8 cm and a 1.7 cm lipid rich right adrenal adenoma. Oncology had been consulted and recommended biospy, which patient refused. PT had also been consulted, patient performed initial assessment, and patient has refused therapy since then. Palliative care consulted to evaluate plan of care and discuss code status. Upon arrival to room, patient sleeping in bedside chair with oxygen, awakens with stimulation. Reports pain to be a 7/10 at this time. No anxiety reported. Lack of appetite with loss of 10 pounds over the last 2-6 months per daughters. Patient reports continued upset stomach, but denies vomiting. Two daughters, Nina and Nilda, at bedside. She reports pain is what made her not want to push herself for biopsy today. Asked if would want biospy if pain was better control; patient reports continued wish to refuse biospy, but would appreciate better pain control. At this time, patient fell asleep, and discussion of care continued with daughters. Daughters report wishes to bring her home but inability to care for her due to working; also reports no dependable care at home. CC: Faith Juarez, ADRIENNE Past Med Surg Social Fam HX - Past Medical History Medical history: CHF, diabetes, hypertension Psychiatric history: no psych history - Past Surgical History Surgical History: herniorrhaphy - Social History Smoking Status: Never smoker Smokeless Tobacco Status: No Alcohol use: none Drug use: none - Family History Father Adopted: No Living Status: Hx Family Cardiac Disorders: Yes Hx Family Cancer: Yes (brain) Hx Family Endocrine Disorder: Yes (dm) Medications and Allergies Garlic [Odor Free Garlic] 100 mg PO BID 10/31/15 [History] Glimepiride [Amaryl] 0.5 mg PO BID 10/31/15 [History] Glucosamine HCl/Chondr Pinon A Na [[facility] Glucosamine-Chondr Tablet] 1 each PO BID 11/10 [History] Metoprolol [Lopressor] 50 mg PO BID 10/31/15 [History] Meclizine HCl [Verticalm] 25 mg PO TID PRN 09/05/17 [History] 3 Allergy/AdvReac Type Severity Reaction Status Date / Time Sulfa (Sulfonamide Allergy Hives Verified 09/05/17 11:46 Antibiotics) codeine AdvReac Hallucinati Verified 09/05/17 11:46 ng Review of systems: Patient frequently falling asleep during assessment. - Constitutional Constitutional ROS PAL: decreased appetite, fatigue, lethargy, weight loss - Cardiovascular Cardiovascular ROS: leg edema - Respiratory Respiratory: cough, dyspnea - Gastrointestinal Gastrointestinal: abdominal pain, change in stool character, nausea - Musculoskeletal Musculoskeletal ROS IM: back pain - Psychiatric Psychiatric general PM: change in appetite Palliative Care-Exam - Constitutional Vitals: Temp Pulse Resp BP Pulse Ox 97.6 F 91 16 139/82 96 09/08/17 10:42 09/08/17 10:42 09/08/17 10:42 09/08/17 10:42 09/08/17 10:42 General appearance: Present: cooperative, no acute distress. Absent: febrile - Head Head Exam: Present: normal inspection - Eye Eye exam: Present: normal appearance - Neck Neck exam: Present: full ROM, normal inspection - Respiratory Respiratory exam: Present: decreased breath sounds, wheezes - Cardiovascular Cardiovascular exam: Present: +S1, +S2. Absent: bradycardia, tachycardia - GI/Abdominal Exam GI/Abdominal exam: Present: diminished bowel sounds, firm, mass additional comments: right upper quandrant. - Expanded Lower Extremities Exam Lower Leg exam: Present: swelling, tenderness - Neurological Exam Neurological exam: Present: alert, oriented X3 Additional comments: Lethargic, frequent reawakenings required. - Psychiatric Psychiatric exam: Present: normal affect, normal mood Internal Medicine - CN: Reslt - Labs CBC & Chem 7: 09/08/17 04:54 09/07/17 04:22 Labs: Short CBC 09/08/17 Range/Units 04:54 WBC 25.3 H D (4.3-11.1) K/mcL Hgb 11.7 (11.5-15.4) g/dL Hct 36.2 (35.3-44.9) % Plt Count 364 (140-400) K/mcL - ABG Interpretation ABG results: PT/INR, D-dimer PT 14.2 Seconds (9.4-12.1) H 09/05/17 01:29 - Impressions Impressions Chest CT 09/08/17 09:04 IMPRESSION: 1. Small right pleural effusion. Right greater than left lower lobe dependent atelectasis. 2. No evidence of metastatic disease in the chest. 3. Please refer to the previously performed MRI from 09/06/2017 regarding multiple hepatic masses and right adrenal gland nodule. D/ / 09/08/2017 11:09:25 Turner Martin MD / piper Interpreting Provider: Turner Martin MD Consult Discharge Plan - Plan Referrals: Huy Jack MD [Primary Care Provider] - Palliative Quality Palliative Quality: Screen for Code Status: Yes, Screen for Goals of Care: Yes, Screen for Pain: Yes, If Pain Regimen Started, Initiate Bowel Regimen: NA, Screen for Nausea/Vomitting: Yes Code Status: 09/08/17 11:25 DNR [Resuscitation Status: Active] [RES] Routine Resuscitation Status: [id number] Comment:
[2017-09-08] MEDS ORDERED: Ondansetron 4 MG/2 ML VIAL IVP PRN (12:23)
--- NOTE | 2017-09-08 14:32 | Oncology Inp Progress Note ---
Date of Encounter: 09/08/17 Time of Encounter: 08:30 (1) Abnormal CT of liver Current Visit: Yes Status: Acute Assessment and plan: Ms. Rubio's abdominal MRI displays multiple liver lesions concerning for hepatocellular carcinoma or malignancy of other primary along with newly found cirrhosis. Cirrhosis of unclear etiology at this time. I have ordered iron studies for further assessment. CEA has resulted at 1.2 and her abdomen/pelvis MRI did not reveal any abdominal findings concerning for metastases, making GI origin unlikely, however, still possible unless ruled out by scoping. AFP pending. Of note, she also has a left parotid mass noted of soft tissue neck CT, MRI was recommended for further characterization and the mass would be amendable to biopsy. Patient appears to be asymptomatic with no reported issues related to the palpable mass. About 25% of parotid tumors are found to be malignant, and it is unlikely that this is related to her liver findings. Further testing could be explored if patient wishes to take this approach. She does have neutrophil predominant leukocytosis with no identified source of infection at this time. Her WBC count increase from 14 yesterday to 25 today. This may be leukemoid reaction to cirrhosis or malignancy, however, would recommend to continue to monitor for other etiology. Given her new onset SOB I will order CT Abdomen/Pelvis to assess for pneumonia or any sign of primary malignancy in the chest which will also help for prognosis discussions. I was notified late last evening that patient would like to have her biopsy today. I rounded with patient this morning to discuss biopsy and she shares with me that she really does not want to have this testing done but feels as though her family want her to. She states she is at peace and wishes to live her life out as long as she can without going through multiple procedures and tests. She gets very nervous with any kind of image or procedure and she did not tolerate her abdominal MRI well, she states she never wants an MRI again. Discussion as further detailed in HPI. Ultimately, after talking to her daughter and having her confirm that she can make her own decision, she declined biopsy today. She understands that without biopsy, we will not diagnose and treat her suspected cancer and that she will ultimately succumb to this disease. She states she understands. Discussed hospice philosophy and further discussions needed with palliative care. Palliative care has been consulted for further discussion. Primary team also updated on the above. Oncology: Subj Interval history: Ms. Rubio is resting in bed. There are no family at her bedside yet today. She is quite alert in comparison to the other days I have met with her. She appears to be slightly SOB although she also appears to be quite nervous about her biopsy which has been planned for today. She states to me that she doesn't really want to go through with the biopsy or any further testing and just wants to "live out the rest of her life". She states that she knows her family wish her to undergo procedures and biopsy but this is against what she ultimately wants. I informed her that this decision is ultimately her own and we will not order any procedures or testing without her consent. In the midst of our conversation her daughter called and she had a conversation regarding the biopsy for quite some time. I rounded back by following their conversation via telephone, ultimate decision as detailed in assessment and plan. - Constitutional Vitals: Vital Signs Temp Pulse Resp BP Pulse Ox 09/08/17 10:42 97.6 F 91 16 139/82 96 09/08/17 07:00 98.9 F 89 15 155/73 93 09/08/17 04:16 99.2 F 87 18 141/75 97 09/07/17 23:02 99 F 82 20 167/78 97 09/07/17 19:09 98.1 F 84 18 150/79 95 09/07/17 15:48 99.4 F 83 17 157/72 95 Intake and Output 09/07/17 09/08/17 09/08/17 23:59 07:59 15:59 Intake Total 120 / 120 Balance 120 / 120 Intake: Oral 120 / 120 Other: Meal Lunch Percent of Meal Consumed 10% Stool Size Moderate Stool Color Brown # Voids 1 # Urine Diapers 1 1 1 # Bowel Movements 1 Weight 87.362 kg Blood Glucose* 202 178 257 Patient Weight 09/08/17 23:59 Weight 87.362 kg General appearance: cooperative, no acute distress, obese, no febrile - Head Head exam: Present: atraumatic - ENT ENT exam: Present: mucous membranes moist - Respiratory Respiratory exam: Present: CTAB. Absent: respiratory distress - Cardiovascular Cardiovascular exam: Present: RRR, +S1, +S2 - GI/Abdominal GI/Abdominal exam: Present: normal bowel sounds, soft, tenderness - Extremities Exam Extremities exam: Absent: calf tenderness Additional comments: BLE edema with compression wraps - Neurological Exam Neurological exam: Present: alert, oriented X3, no focal deficits, strengths equal and symetr throughout - Psychiatric Psychiatric exam: Present: normal affect, normal mood - Skin Skin exam: Present: pallor, warm Oncology: Obj Data - Labs CBC & Chem 7: 09/08/17 04:54 09/07/17 04:22 Labs: Laboratory Results - last 24 hr 09/07/17 09/07/17 09/07/17 12:19 14:12 14:12 WBC RBC Hgb Hct MCV MCH MCHC RDW Plt Count MPV POC Glucose 144 H Iron < 10 L % Saturation TNP Transferrin 132 L Ferritin 524 H Ammonia 31 09/07/17 09/07/17 09/08/17 16:45 19:54 04:54 WBC 25.3 H D RBC 4.06 Hgb 11.7 Hct 36.2 MCV 89.2 MCH 28.8 MCHC 32.3 RDW 13.3 Plt Count 364 MPV 9.5 POC Glucose 155 H 202 H Iron % Saturation Transferrin Ferritin Ammonia - Impressions Impressions Chest CT 09/08/17 09:04 IMPRESSION: 1. Small right pleural effusion. Right greater than left lower lobe dependent atelectasis. 2. No evidence of metastatic disease in the chest. 3. Please refer to the previously performed MRI from 09/06/2017 regarding multiple hepatic masses and right adrenal gland nodule. D/ / 09/08/2017 11:09:25 Turner Martin MD / piper Interpreting Provider: Turner Martin MD - ABG Interpretation ABG results: PT/INR, D-dimer PT 14.2 Seconds (9.4-12.1) H 09/05/17 01:29 Consult Discharge Plan - Plan Referrals: Huy Jack MD [Primary Care Provider] -
[2017-09-08] MEDS: *HR* OxyCODONE Immed Rel 5 MG TABLET PO PRN (17:47)
--- NOTE | 2017-09-08 17:55 | Internal Med Progress Note ---
Date of Encounter: 09/08/17 Time of Encounter: 11:00 - Assessment and plan (1) Abnormal CT of liver Current Visit: Yes Status: Acute Assessment and plan: (1) Abdominal pain Current Visit: Yes Status: Acute Assessment and plan: Suspect secondary to possible liver malignancy. Abdominal pain waxes and wanes. Denies on 09/08 exam. Qualifiers: Abdominal location: right lower quadrant Qualified Code(s): R10.31 - Right lower quadrant pain (2) Liver lesion Current Visit: Yes Status: Acute Assessment and plan: liver MRI shows 6 scattered hepatic lesions concerning for hepatocellular carcinoma, possibly metastatic disease. Initial LFTs elevated, repeat LFTs stable. Outpatient soft neck CT showed left parotid mass for which an MRI was recommended for further characterization and patient/family refusing at this time as well. Evaluated by oncology who recommended liver biopsy and parotid MRI however patient/family declining further treatment/workup at this time. Palliative care was consult if her goals of care discussion and patient was changed to DNR CC/DNI. (3) Diabetes mellitus, type II Current Visit: Yes Status: Chronic Assessment and plan: per hx. holding home oral hypoglycemics. SSI. Monitor blood sugar and titrate PRN Qualifiers: Diabetes mellitus urogynecology physician insulin use: without urogynecology physician use Diabetes mellitus complication status: with hyperglycemia Qualified Code(s): E11.65 - Type 2 diabetes mellitus with hyperglycemia (4) Essential hypertension Current Visit: Yes Status: Acute Assessment and plan: BP uncontrolled on arrival. BP improved with resuming home BP medication. Monitor BP and titrate PRN (5) Generalized weakness Current Visit: Yes Status: Acute Assessment and plan: Progressive over the past couple of weeks; in the setting of possible new malignancy. PT/OT recommending SNF (6) Cirrhosis of liver Current Visit: Yes Status: Chronic Assessment and plan: new dx. 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 Hepatitis viral panel negative. Qualifiers: Hepatic cirrhosis type: unspecified hepatic cirrhosis Ascites presence: unspecified Qualified Code(s): K74.60 - Unspecified cirrhosis of liver (7) Lower extremity edema Current Visit: Yes Status: Acute Assessment and plan: Bilateral lower extremity with gross pitting edema. Supposed to be on Lasix at home but patient does not take due to excessive urination. IV Lasix ordered inpatient however she is refusing due to frequent urination. She is also refusing lower extremity compression wraps. (8) Leukocytosis Current Visit: Yes Status: Acute Assessment and plan: WBC peaked at 25 K, afebrile, no tachycardia or hypotension. Lactic acid normal. No obvious infectious source. UA not indicative of UTI, CXR without infiltrates/consolidation. Hold on ATB at this time as no obvious infectious source and patient is asymptomatic. No hypotension or tachycardia. Remains hemodynamically stable. Blood cultures negative Qualifiers: Leukocytosis type: unspecified Qualified Code(s): D72.829 - Elevated white blood cell count, unspecified (9) DVT prophylaxis Current Visit: Yes Status: Acute Assessment and plan: heparin - Subjective Interval history: Seen and examined at bedside. She is sitting up in chair eating lunch. Says she feels a little bit better from yesterday. No abdominal pain. Still has lower extremity edema. She is refusing Lasix because of excessive urination. No chest pain or shortness of breath. Discussed overall prognosis with patient and son and patient/family does not want to move forward with biopsy at this time. Plan is to transfer to SNF or home with hospice. - Constitutional Vitals: Temp Pulse Resp BP Pulse Ox 97.2 F L 95 15 138/85 93 09/08/17 15:20 09/08/17 15:20 09/08/17 15:20 09/08/17 15:20 09/08/17 15:20 General appearance: Present: cooperative, A&O X 3, morbidly obese, answers questions appropriately - Head Head exam: Present: atraumatic, normocephalic - Eye Eye exam: Present: PERRL, conjuntiva pink, sclera anicteric Pupils: Present: PERRL - Neck Neck exam general surgery: Present: supple, trachea midline. Absent: lymphadenopathy - Respiratory Respiratory exam: Present: CTAB. Absent: accessory muscle use, rales, rhonchi, wheezes - Cardiovascular Cardiovascular exam: Present: RRR, +S1, +S2. Absent: diastolic murmur, gallop, rubs, systolic murmur - GI/Abdominal GI/Abdominal exam: Present: normal bowel sounds, soft, no peritoneal signs. Absent: distended, tenderness - Extremities Exam Extremities exam: Present: pedal edema, warm, radial pulses palpable and symmetrical. Absent: calf tenderness, cyanotic - Neurological Exam Neurological exam: Present: CN II-XII intact, oriented X3, no focal deficits. Absent: pronater drift, facial droop, speech deficit - Skin Skin exam: Present: dry, intact Internal Medicine: Result - Labs CBC & Chem 7: 09/08/17 04:54 09/07/17 04:22 Labs: Short CBC 09/08/17 Range/Units 04:54 WBC 25.3 H D (4.3-11.1) K/mcL Hgb 11.7 (11.5-15.4) g/dL Hct 36.2 (35.3-44.9) % Plt Count 364 (140-400) K/mcL - ABG Interpretation ABG results: PT/INR, D-dimer PT 14.2 Seconds (9.4-12.1) H 09/05/17 01:29 - Impressions Impressions Chest CT 09/08/17 09:04 IMPRESSION: 1. Small right pleural effusion. Right greater than left lower lobe dependent atelectasis. 2. No evidence of metastatic disease in the chest. 3. Please refer to the previously performed MRI from 09/06/2017 regarding multiple hepatic masses and right adrenal gland nodule. D/ / 09/08/2017 11:09:25 Turner Martin MD / piper Interpreting Provider: Turner Martin MD Consult Discharge Plan - Plan Referrals: Huy Jack MD [Primary Care Provider] -
[2017-09-08] MEDS: Ibuprofen 600 MG TABLET PO PRN (20:43)
--- NOTE | 2017-09-08 22:56 | Event Note ---
Date of Encounter: 09/08/17 Time of Encounter: 22:50 Called d/t pts. tachycardia and HR in 140's-160's. In reviewing pts. current labs and vital signs, pt. found to be sepsis criteria w/WBC that has increased from 13.9 to 25.3. HR >140-160's and RR 24. 2L 0.9 IV NS bolus ordered. Stat lactic acid and timed lactic acids ordered. IVPB vancomycin w/pharmacy dosing and Zosyn 3.375 gm Q8 for infection coverage. Blood cultures x2 ordered previously show no growth. Respiratory Infection Panel ordered stat. VS [id number] ordered. Pts. Code Status was changed to DNRCCA-DNI today. Pt. to be monitored closely and provider notified of any changes in VS, labs, or pts. status.
[2017-09-08] MEDS: Piperacillin/Tazobactam 3.375 GM in 0.9 % Sodium Chloride Mini Bag 100 ML IVPB SCH (23:46)
[2017-09-08] MEDS: 0.9 % Sodium Chloride 1,000 ML IVC SCH (23:51)
[2017-09-09 04:25] LABS: Mean Corpuscular Hemoglobin 29.4 pg (28.0-33.3); Red Cell Distribution Width 13.3 % (11.5-14.5)
[2017-09-09 04:26] LABS: Hematocrit 30.6 % (35.3-44.9); Hemoglobin 10.1 g/dL (11.5-15.4); Mean Platelet Volume 10.4 fL (9.4-12.4); Platelet Count 214 K/mcL (140-400); Red Blood Count 3.44 M/mcL (3.82-4.97)
[2017-09-09 05:25] LABS: Adenovirus Not Detected (Not Detect); Bordetella Pertussis Not Detected (Not Detect); Chlamydophila pneumoniae Not Detected (Not Detect); Coronavirus 229E Not Detected (Not Detect); Coronavirus HKU1 Not Detected (Not Detect); Coronavirus NL63 Not Detected (Not Detect); Coronavirus OC43 Not Detected (Not Detect); Human Metapneumovirus Not Detected (Not Detect); Human Rhinovirus/Enterovirus Not Detected (Not Detect); Influenza A Subtype 2009 H1 Not Detected (Not Detect); Influenza A Untypeable Not Detected (Not Detect); Influenza B Not Detected (Not Detect); Mycoplasma pneumoniae Not Detected (Not Detect); Parainfluenza Virus 1 Not Detected (Not Detect); Parainfluenza Virus 2 Not Detected (Not Detect); Parainfluenza Virus 3 Not Detected (Not Detect); Parainfluenza Virus 4 Not Detected (Not Detect); Respiratory Syncytial Virus Not Detected (Not Detect)
[2017-09-09] MEDS: Furosemide 40 MG/4 ML VIAL IVP SCH (08:00)
[2017-09-09] MEDS: Piperacillin/Tazobactam 3.375 GM in 0.9 % Sodium Chloride Mini Bag 100 ML IVPB SCH ×2 (08:01→16:50)
[2017-09-09] MEDS: Insulin LISPRO 300 UNITS/3 ML VIAL SQ SCH ×4 (08:01→20:35)
[2017-09-09 08:40] LABS: Bilirubin,Urine Small (Negative); Blood,Urine Negative (Negative); Clarity,Urine Cloudy (Clear); Color,Urine Dark Yellow (Yellow); Glucose,Urine (UA) Normal (Normal); Ketones,Urine Trace mg/dL (Negative); Leukocyte Esterase,Urine Negative (Negative); Nitrite,Urine Positive (Negative); Protein,Urine 100 mg/dL (Neg-Trace); Specific Gravity,Urine > 1.030 (1.010-1.025); Urobilinogen,Urine Normal (Normal)
[2017-09-09 08:44] LABS: Bacteria,Urine Many per hpf (None-Few); Hyaline Casts,Urine None Seen per lpf (None-Few); Squamous Epithelial Cell,Urine Many per lpf (None-Few)
[2017-09-09 09:00] LABS: Granular Casts,Urine Few per lpf (None Seen); Mucus,Urine Moderate (Few)
--- NOTE | 2017-09-09 11:01 | Palliative Progress Note ---
Date of Encounter: 09/09/17 Time of Encounter: 09:30 - Assessment and plan (1) Abdominal pain Current Visit: Yes Status: Acute Assessment and plan: Continue Motrin for moderate pain ( utilized x1 last 24 hours), and Oxycodone 5mg for more severe pain (utilized x1 last 24 hours). Monitor, she is comfortable this am. Qualifiers: Abdominal location: right lower quadrant Qualified Code(s): R10.31 - Right lower quadrant pain (2) Nausea Current Visit: Yes Status: Acute Assessment and plan: Continue Zofran as needed, but this has improved and she has not had to utilized this. (3) Goals of care, counseling/discussion Current Visit: Yes Status: Acute Assessment and plan: Benjamin Glass and I met with pt and son this am. Son states they are leaning toward taking her home with hospice care, they are still discussing and trying to arrange enough help at home for her care. If she has infection, they would like this treated prior to discharge. If she would require mcc antibiotics - may need to regroup with family to discuss discharge plan. Will continue to follow and will d/w hospitalist. Family will need equipment set up (hospital bed, BSC, WC ) as well as others, so this will also need coordinated prior to discharge. Will continue to follow (4) Cirrhosis of liver Current Visit: Yes Status: Chronic Qualifiers: Hepatic cirrhosis type: unspecified hepatic cirrhosis Ascites presence: unspecified Qualified Code(s): K74.60 - Unspecified cirrhosis of liver (5) Liver lesion Current Visit: Yes Status: Acute - Time Spent With Patient Total time spent is greater than 50% in coordination of care (as documented) at patient's floor/unit and/or counseling patient: 25 - 35 minutes - Subjective Interval history: Patient eating breakfast in bed. Able to feed self. Appears more alert and conversing some. Son at bedside. States pain is better today, and she feels much better. - Constitutional Vitals: Abnormal lab results WBC 27.1 K/mcL (4.3-11.1) H 09/09/17 04:04 RBC 3.44 M/mcL (3.82-4.97) L 09/09/17 04:04 Hgb 10.1 g/dL (11.5-15.4) L D 09/09/17 04:04 Hct 30.6 % (35.3-44.9) L 09/09/17 04:04 Neutrophils # 11.6 K/mcL (1.6-8.9) H 09/04/17 20:39 PT 14.2 Seconds (9.4-12.1) H 09/05/17 01:29 Creatinine 0.53 mg/dL (0.60-1.20) L 09/07/17 04:22 BUN/Creatinine Ratio 28 (6-26) H 09/07/17 04:22 Glucose 123 mg/dL (70-105) H 09/07/17 04:22 POC Glucose 162 (58-89) H 09/09/17 07:37 Lactic Acid 2.5 mmol/L (0.5-2.2) H 09/08/17 23:14 Calcium 8.1 mg/dL (8.6-10.3) L 09/07/17 04:22 Phosphorus 2.4 mg/dL (2.7-4.5) L 09/05/17 01:29 Iron < 10 mcg/dL (50-170) L 09/07/17 14:12 Transferrin 132 mg/dL (203-362) L 09/07/17 14:12 Ferritin 524 ng/ml (10-120) H 09/07/17 14:12 Alkaline Phosphatase 152 Units/L (34-104) H 09/07/17 04:22 B-Natriuretic Peptide 526 pg/mL (Less than 100) H 09/06/17 03:32 Serum Total Protein 5.6 g/dL (6.4-8.9) L 09/07/17 04:22 Albumin 2.2 g/dL (3.5-5.7) L 09/07/17 04:22 Albumin/Globulin Ratio 0.6 (1.1-2.2) L 09/07/17 04:22 Vitamin B12 > 1500 pg/mL (250-1100) H 09/07/17 04:22 Urine Clarity Cloudy (Clear) A 09/09/17 08:23 Ur Specific [place] > 1.030 (1.010-1.025) H 09/09/17 08:23 Urine Protein 100 mg/dL (Neg-Trace) H 09/09/17 08:23 Urine Ketones Trace mg/dL (Negative) H 09/09/17 08:23 Urine Nitrite Positive (Negative) A 09/09/17 08:23 Urine Bilirubin Small (Negative) H 09/09/17 08:23 Urine Microscopic WBC 5-15 per hpf (0-3) H 09/09/17 08:23 Ur Squamous Epith Cells Many per lpf (None-Few) H 09/09/17 08:23 Urine Bacteria Many per hpf (None-Few) H 09/09/17 08:23 Granular Casts Few per lpf (None Seen) H 09/09/17 08:23 Urine Mucus Moderate (Few) H 09/09/17 08:23 General appearance: Present: no acute distress - Respiratory Respiratory exam: Present: decreased breath sounds, CTAB - Cardiovascular Cardiovascular exam: Present: +S1, +S2 - GI/Abdominal GI/Abdominal exam: Present: normal bowel sounds, soft - Neurological Exam Neurological exam: Present: alert, oriented X3, strengths equal and symetr throughout - Psychiatric Psychiatric exam: Present: normal affect, normal mood - Skin Skin exam: Present: dry, pallor, warm Palliative Quality Palliative Quality: Screen for Code Status: Yes, Screen for Goals of Care: Yes, Screen for Pain: Yes, If Pain Regimen Started, Initiate Bowel Regimen: NA, Screen for Nausea/Vomitting: Yes Code Status: 09/08/17 11:25 DNR [Resuscitation Status: Active] [RES] Routine Comment: Resuscitation Status: [id number] - Labs CBC & Chem 7: 09/09/17 04:04 09/07/17 04:22 Labs: Laboratory Results - last 24 hr 09/06/17 09/08/17 09/08/17 18:55 06:59 11:31 WBC RBC Hgb Hct MCV MCH MCHC RDW Plt Count MPV POC Glucose 178 H 257 H Lactic Acid Tumor Marker AFP 1 Urine Color Urine Clarity Urine pH Ur Specific [place] Urine Protein Urine Glucose (UA) Urine Ketones Urine Blood Urine Nitrite Urine Bilirubin Urine Urobilinogen Ur Leukocyte Esterase Urine Microscopic WBC Ur Squamous Epith Cells Urine Bacteria Hyaline Casts Granular Casts Urine Mucus Ur Culture Indicated? Chlamy pneumoniae PCR Adenovirus (PCR) B. pertussis DNA (PCR) B.parapertussis DNA PCR Coronavirus OC43 (PCR) Coronavirus HKU1 (PCR) Coronavirus 229E (PCR) Coronavirus NL63 (PCR) Human Metapneumovir PCR Influenza A (H1) PCR Influ A (H1N1/09) PCR Influenza A (H3) PCR Influenza A Untype (PCR) Influenza Type B (PCR) M.pneumoniae DNA (PCR) Parainfluenza 1 (PCR) Parainfluenza 2 (PCR) Parainfluenza 3 (PCR) Parainfluenza 4 (PCR) RSV (PCR) Entero/Rhino (PCR) 09/08/17 09/08/17 09/09/17 15:19 23:14 03:30 WBC RBC Hgb Hct MCV MCH MCHC RDW Plt Count MPV POC Glucose 147 H Lactic Acid 2.5 H Tumor Marker AFP Urine Color Urine Clarity Urine pH Ur Specific [place] Urine Protein Urine Glucose (UA) Urine Ketones Urine Blood Urine Nitrite Urine Bilirubin Urine Urobilinogen Ur Leukocyte Esterase Urine Microscopic WBC Ur Squamous Epith Cells Urine Bacteria Hyaline Casts Granular Casts Urine Mucus Ur Culture Indicated? Chlamy pneumoniae PCR Not Detected Adenovirus (PCR) Not Detected B. pertussis DNA (PCR) Not Detected B.parapertussis DNA PCR Not Detected Coronavirus OC43 (PCR) Not Detected Coronavirus HKU1 (PCR) Not Detected Coronavirus 229E (PCR) Not Detected Coronavirus NL63 (PCR) Not Detected Human Metapneumovir PCR Not Detected Influenza A (H1) PCR Not Detected Influ A (H1N1/09) PCR Not Detected Influenza A (H3) PCR Not Detected Influenza A Untype (PCR) Not Detected Influenza Type B (PCR) Not Detected M.pneumoniae DNA (PCR) Not Detected Parainfluenza 1 (PCR) Not Detected Parainfluenza 2 (PCR) Not Detected Parainfluenza 3 (PCR) Not Detected Parainfluenza 4 (PCR) Not Detected RSV (PCR) Not Detected Entero/Rhino (PCR) Not Detected 09/09/17 09/09/17 09/09/17 04:04 07:37 08:23 WBC 27.1 H RBC 3.44 L Hgb 10.1 L D Hct 30.6 L MCV 89.0 MCH 29.4 MCHC 33.0 RDW 13.3 Plt Count 214 MPV 10.4 POC Glucose 162 H Lactic Acid Tumor Marker AFP Urine Color Dark Yellow Urine Clarity Cloudy A Urine pH 5.0 Ur Specific [place] > 1.030 H Urine Protein 100 H Urine Glucose (UA) Normal Urine Ketones Trace H Urine Blood Negative Urine Nitrite Positive A Urine Bilirubin Small H Urine Urobilinogen Normal Ur Leukocyte Esterase Negative Urine Microscopic WBC 5-15 H Ur Squamous Epith Cells Many H Urine Bacteria Many H Hyaline Casts None Seen Granular Casts Few H Urine Mucus Moderate H Ur Culture Indicated? NO. Chlamy pneumoniae PCR Adenovirus (PCR) B. pertussis DNA (PCR) B.parapertussis DNA PCR Coronavirus OC43 (PCR) Coronavirus HKU1 (PCR) Coronavirus 229E (PCR) Coronavirus NL63 (PCR) Human Metapneumovir PCR Influenza A (H1) PCR Influ A (H1N1/09) PCR Influenza A (H3) PCR Influenza A Untype (PCR) Influenza Type B (PCR) M.pneumoniae DNA (PCR) Parainfluenza 1 (PCR) Parainfluenza 2 (PCR) Parainfluenza 3 (PCR) Parainfluenza 4 (PCR) RSV (PCR) Entero/Rhino (PCR) - Impressions Impressions Chest CT 09/08/17 09:04 IMPRESSION: 1. Small right pleural effusion. Right greater than left lower lobe dependent atelectasis. 2. No evidence of metastatic disease in the chest. 3. Please refer to the previously performed MRI from 09/06/2017 regarding multiple hepatic masses and right adrenal gland nodule. D/ / 09/08/2017 11:09:25 Turner Martin MD / piper Interpreting Provider: Turner Martin MD - ABG Interpretation ABG results: PT/INR, D-dimer PT 14.2 Seconds (9.4-12.1) H 09/05/17 01:29 Consult Discharge Plan - Plan Referrals: Huy Jack MD [Primary Care Provider] -
[2017-09-09] MEDS: Nystatin POWDER 30 GM BOTTLE TP SCH ×3 (11:13→20:45)
[2017-09-09 12:00] LABS: BUN/Creatinine Ratio 30 (6-26); Blood Urea Nitrogen 26 mg/dL (8-23); Calcium 8.7 mg/dL (8.6-10.3); Carbon Dioxide 27 mEq/L (23-29); Chloride 98 mEq/L (98-107); Glucose 175 mg/dL (70-105); Osmolality,Calculated 287 (280-300); Potassium 4.6 mEq/L (3.5-5.1); Sodium 134 mEq/L (136-145); eGFR For African Americans > 60 (> 60); eGFR For Non-African Americans > 60 (> 60)
[2017-09-09 14:51] LABS: RBC,Urine 0-3 per hpf (0-3)
[2017-09-09] MEDS: *HR* OxyCODONE Immed Rel 5 MG TABLET PO PRN ×2 (16:53→22:48)
[2017-09-09] MEDS ORDERED: Iron Sucrose Complex 400 MG in 0.9 % Sodium Chloride 250 ML IVPB ONE (18:23)
--- NOTE | 2017-09-09 18:28 | Internal Med Progress Note ---
Date of Encounter: 09/09/17 Time of Encounter: 18:25 - Assessment and plan (1) Leukocytosis Current Visit: Yes Status: Acute Assessment and plan: - Persistent leukocytosis since admission, initial infection workup no identifiable source of infection. She had tachycardia on the evening of 2017. Abx was started concerning possible infection. - UTI on UA 09/09/2017. - continue abx for now. Qualifiers: Leukocytosis type: unspecified Qualified Code(s): D72.829 - Elevated white blood cell count, unspecified (2) Liver lesion Current Visit: Yes Status: Acute Assessment and plan: - concerning for HCC or metastasis, biopsy recommended by Onc but pt and family refused. - palliative care consulted, pt DNRCCA. - will dc home with home hospice. (3) Abdominal pain Current Visit: Yes Status: Acute Assessment and plan: - maily located on epigastric region, likely related to liver masses. - pain control. Qualifiers: Abdominal location: right lower quadrant Qualified Code(s): R10.31 - Right lower quadrant pain (4) UTI (urinary tract infection) Current Visit: Yes Status: Acute Assessment and plan: - currently abx will cover. Qualifiers: Urinary tract infection type: site unspecified Hematuria presence: without hematuria Qualified Code(s): N39.0 - Urinary tract infection, site not specified (5) Essential hypertension Current Visit: No Status: Chronic Assessment and plan: - well controlled, continue current treatment. - Time Spent With Patient Greater than 35 minutes - Subjective Interval history: Patient resting in bed, she has no complaints. - Constitutional Vitals: Temp Pulse Resp BP Pulse Ox 97.9 F 80 15 154/66 94 09/09/17 14:57 09/09/17 14:57 09/09/17 14:57 09/09/17 14:57 09/09/17 14:57 General appearance: Present: cooperative, A&O X 3, morbidly obese, answers questions appropriately Exam: PHYSICAL EXAMINATION: GENERAL APPEARANCE: The patient is alert, oriented and in no acute distress. HEENT: Head is normocephalic. The sinuses are nontender. Pupils are equal and reactive. The nares are patent. Oropharynx clear without lesions. NECK: Supple without lymphadenopathy. HEART: Regular rate and rhythm. LUNGS: No crackles or wheezes are heard. ABDOMEN: Soft, diffusely tender, nondistended with good bowel sounds heard. Inguinal area is normal. EXTREMITIES: Without cyanosis, clubbing or edema. NEUROLOGICAL: Gross nonfocal. SKIN: Warm and dry without any rash. Internal Medicine: Result - Labs CBC & Chem 7: 09/09/17 04:04 09/09/17 11:36 Labs: Short CBC 09/09/17 Range/Units 04:04 WBC 27.1 H (4.3-11.1) K/mcL Hgb 10.1 L D (11.5-15.4) g/dL Hct 30.6 L (35.3-44.9) % Plt Count 214 (140-400) K/mcL BMP 09/09/17 11:36 Sodium 134 L Potassium 4.6 Chloride 98 Carbon Dioxide 27 BUN 26 H Creatinine 0.88 Glucose 175 H Calcium 8.7 Urine 09/09/17 Range/Units 08:23 Urine Color Dark Yellow (Yellow) Urine Clarity Cloudy A (Clear) Urine pH 5.0 (5.0-8.0) pH Units Ur Specific [place] > 1.030 H (1.010-1.025) Urine Protein 100 H (Neg-Trace) mg/dL Urine Glucose (UA) Normal (Normal) mg/dL - ABG Interpretation ABG results: PT/INR, D-dimer PT 14.2 Seconds (9.4-12.1) H 09/05/17 01:29 - Impressions Impressions Chest CT 09/08/17 09:04 IMPRESSION: 1. Small right pleural effusion. Right greater than left lower lobe dependent atelectasis. 2. No evidence of metastatic disease in the chest. 3. Please refer to the previously performed MRI from 09/06/2017 regarding multiple hepatic masses and right adrenal gland nodule. D/ / 09/08/2017 11:09:25 Turner Martin MD / piper Interpreting Provider: Turner Martin MD Consult Discharge Plan - Plan Referrals: Huy Jack MD [Primary Care Provider] -
[2017-09-09] MEDS: Ibuprofen 600 MG TABLET PO PRN (20:49)
[2017-09-10] MEDS: Piperacillin/Tazobactam 3.375 GM in 0.9 % Sodium Chloride Mini Bag 100 ML IVPB SCH ×2 (02:39→08:13)
[2017-09-10] MEDS: 0.9 % Sodium Chloride 1,000 ML IVC SCH ×2 (03:21→03:22)
[2017-09-10 03:59] LABS: BUN/Creatinine Ratio 29 (6-26); Blood Urea Nitrogen 30 mg/dL (8-23); Calcium 7.9 mg/dL (8.6-10.3); Carbon Dioxide 29 mEq/L (23-29); Chloride 99 mEq/L (98-107); Glucose 145 mg/dL (70-105); Osmolality,Calculated 287 (280-300); Potassium 4.2 mEq/L (3.5-5.1); Sodium 134 mEq/L (136-145); eGFR For African Americans > 60 (> 60); eGFR For Non-African Americans 52 (> 60)
[2017-09-10 04:05] LABS: Hematocrit 31.9 % (35.3-44.9); Hemoglobin 10.4 g/dL (11.5-15.4); Mean Corpuscular HGB Conc 32.6 g/dL (31.6-35.5); Mean Corpuscular Volume 88.9 fL (83.0-100.0); Mean Platelet Volume 10.2 fL (9.4-12.4); Platelet Count 305 K/mcL (140-400); Red Blood Count 3.59 M/mcL (3.82-4.97); Red Cell Distribution Width 13.4 % (11.5-14.5)
[2017-09-10] MEDS: Insulin LISPRO 300 UNITS/3 ML VIAL SQ SCH ×2 (07:47→12:09)
[2017-09-10] MEDS: Furosemide 40 MG/4 ML VIAL IVP SCH (08:12)
[2017-09-10] MEDS: Nystatin POWDER 30 GM BOTTLE TP SCH ×2 (08:14→15:38)
--- NOTE | 2017-09-10 10:26 | Palliative Progress Note ---
Date of Encounter: 09/10/17 Time of Encounter: 10:25 - Assessment and plan (1) Abdominal pain Current Visit: Yes Status: Acute Assessment and plan: Patient states that medications are effective - Utilized Motrin x2 yesterday and Oxycodone x2. Continue and monitor Qualifiers: Abdominal location: right lower quadrant Qualified Code(s): R10.31 - Right lower quadrant pain (2) Nausea Current Visit: Yes Status: Acute Assessment and plan: Improved - Ondanestron available if needed. (3) Goals of care, counseling/discussion Current Visit: Yes Status: Acute Assessment and plan: Patient family at bedside. Awaiting hospitalist to see. If they still decline any further intervention and desire to go home with hospice, will need to arrange DME's prior to discharge. Copies of POA made and placed in medical record. Completed state DNR form with pt/family and copies provided to them as well. Code status DNRCC. Afternoon update - notified by hospitalist pt wants to go home with [facility]. Referral called to Melanie Obando. Contact information for daughter Nina given for communication of DME delivery. [place] hospice nurse to enroll pt at 1530 this afternoon. Discharge prescriptions for comfort medications faxed to pharmacy. (4) Cirrhosis of liver Current Visit: Yes Status: Chronic Qualifiers: Hepatic cirrhosis type: unspecified hepatic cirrhosis Ascites presence: unspecified Qualified Code(s): K74.60 - Unspecified cirrhosis of liver (5) Liver lesion Current Visit: Yes Status: Acute - Time Spent With Patient Total time spent is greater than 50% in coordination of care (as documented) at patient's floor/unit and/or counseling patient: - Subjective Interval history: Patient appears weak today - states she feels very tired. Has had some RUQ pain , but states medications has been helpful. WBC still increasing despite 36 hours of IV antibiotics. Cultures negative. Son and daughter at bedside. - Constitutional Vitals: Abnormal lab results WBC 29.8 K/mcL (4.3-11.1) H 09/10/17 03:17 RBC 3.59 M/mcL (3.82-4.97) L 09/10/17 03:17 Hgb 10.4 g/dL (11.5-15.4) L 09/10/17 03:17 Hct 31.9 % (35.3-44.9) L 09/10/17 03:17 Neutrophils # 11.6 K/mcL (1.6-8.9) H 09/04/17 20:39 PT 14.2 Seconds (9.4-12.1) H 09/05/17 01:29 Sodium 134 mEq/L (136-145) L 09/10/17 03:17 BUN 30 mg/dL (8-23) H 09/10/17 03:17 Est GFR (Non-Af Amer) 52 (> 60) L 09/10/17 03:17 BUN/Creatinine Ratio 29 (6-26) H 09/10/17 03:17 Glucose 145 mg/dL (70-105) H 09/10/17 03:17 POC Glucose 138 (58-89) H 09/09/17 19:18 Lactic Acid 2.5 mmol/L (0.5-2.2) H 09/08/17 23:14 Calcium 7.9 mg/dL (8.6-10.3) L 09/10/17 03:17 Phosphorus 2.4 mg/dL (2.7-4.5) L 09/05/17 01:29 Iron < 10 mcg/dL (50-170) L 09/07/17 14:12 Transferrin 132 mg/dL (203-362) L 09/07/17 14:12 Ferritin 524 ng/ml (10-120) H 09/07/17 14:12 Alkaline Phosphatase 152 Units/L (34-104) H 09/07/17 04:22 B-Natriuretic Peptide 526 pg/mL (Less than 100) H 09/06/17 03:32 Serum Total Protein 5.6 g/dL (6.4-8.9) L 09/07/17 04:22 Albumin 2.2 g/dL (3.5-5.7) L 09/07/17 04:22 Albumin/Globulin Ratio 0.6 (1.1-2.2) L 09/07/17 04:22 Vitamin B12 > 1500 pg/mL (250-1100) H 09/07/17 04:22 Urine Clarity Cloudy (Clear) A 09/09/17 08:23 Ur Specific [place] > 1.030 (1.010-1.025) H 09/09/17 08:23 Urine Protein 100 mg/dL (Neg-Trace) H 09/09/17 08:23 Urine Ketones Trace mg/dL (Negative) H 09/09/17 08:23 Urine Nitrite Positive (Negative) A 09/09/17 08:23 Urine Bilirubin Small (Negative) H 09/09/17 08:23 Urine Microscopic WBC 5-15 per hpf (0-3) H 09/09/17 08:23 Ur Squamous Epith Cells Many per lpf (None-Few) H 09/09/17 08:23 Urine Bacteria Many per hpf (None-Few) H 09/09/17 08:23 Granular Casts Few per lpf (None Seen) H 09/09/17 08:23 Urine Mucus Moderate (Few) H 09/09/17 08:23 General appearance: Present: no acute distress, obese - Respiratory Respiratory exam: Present: decreased breath sounds, CTAB - Cardiovascular Cardiovascular exam: Present: +S1, +S2 - GI/Abdominal GI/Abdominal exam: Present: soft Additional comments: RUQ tenderness - Extremities Exam Extremities exam: Present: normal capillary refill, normal inspection - Neurological Exam Neurological exam: Present: alert, oriented X3 Additional comments: generalized weakness - Skin Skin exam: Present: dry, pallor, warm Palliative Quality Palliative Quality: Screen for Code Status: Yes, Screen for Goals of Care: Yes, Screen for Pain: Yes, If Pain Regimen Started, Initiate Bowel Regimen: NA, Screen for Nausea/Vomitting: Yes Code Status: 09/08/17 11:25 DNR [Resuscitation Status: Active] [RES] Routine Comment: Resuscitation Status: [id number] - Labs CBC & Chem 7: 09/10/17 03:17 09/10/17 03:17 Labs: Laboratory Results - last 24 hr 09/08/17 09/09/17 09/09/17 20:26 08:23 11:36 WBC RBC Hgb Hct MCV MCH MCHC RDW Plt Count MPV Sodium 134 L Potassium 4.6 Chloride 98 Carbon Dioxide 27 BUN 26 H Creatinine 0.88 Est GFR ( Amer) > 60 Est GFR (Non-Af Amer) > 60 BUN/Creatinine Ratio 30 H Glucose 175 H POC Glucose 146 H Calculated Osmolality 287 Calcium 8.7 Urine Microscopic RBC 0-3 09/09/17 09/09/17 09/09/17 11:38 16:39 19:18 WBC RBC Hgb Hct MCV MCH MCHC RDW Plt Count MPV Sodium Potassium Chloride Carbon Dioxide BUN Creatinine Est GFR ( Amer) Est GFR (Non-Af Amer) BUN/Creatinine Ratio Glucose POC Glucose 178 H 162 H 138 H Calculated Osmolality Calcium Urine Microscopic RBC 09/10/1718 03:17 03:17 WBC 29.8 H RBC 3.59 L Hgb 10.4 L Hct 31.9 L MCV 88.9 MCH 29.0 MCHC 32.6 RDW 13.4 Plt Count 305 MPV 10.2 Sodium 134 L Potassium 4.2 Chloride 99 Carbon Dioxide 29 BUN 30 H Creatinine 1.03 Est GFR ( Amer) > 60 Est GFR (Non-Af Amer) 52 L BUN/Creatinine Ratio 29 H Glucose 145 H POC Glucose Calculated Osmolality 287 Calcium 7.9 L Urine Microscopic RBC - ABG Interpretation ABG results: PT/INR, D-dimer PT 14.2 Seconds (9.4-12.1) H 09/05/17 01:29 Consult Discharge Plan - Plan Referrals: Huy Jack MD [Primary Care Provider] - Prescriptions: Acetaminophen [Tylenol] 500 mg PO Q6HR PRN #60 tablet PRN Reason: Mild Pain/Fever Ibuprofen [Motrin] 600 mg PO Q6HR PRN #60 tablet PRN Reason: Mild To Moderate Pain LORazepam Oral Conc [Ativan Oral Conc] 0.5 - 1 mg PO Q6HR PRN 4 Days #15 mls PRN Reason: Anxiety OxyCODONE Immed Rel [Roxicodone 5 MG] 5 mg PO Q6HR PRN 4 Days #16 tablet PRN Reason: abd pain Prochlorperazine Maleate [Compazine] 10 mg PO Q6HR PRN #14 tablet PRN Reason: Nausea Lidocaine 1 each TP DAILY #10 adh..patch MORPHINE SUL Oral CONC [Roxanol Oral Conc] 2.5 - 5 mg SL Q4H PRN 4 Days #15 ml PRN Reason: breakthrough pain/dyspnea Sennosides/Docusate Sodium [Senna Plus] 1 each PO DAILY #4 tablet
[2017-09-10 11:26] VITALS: BP 147/73
--- NOTE | 2017-09-10 14:03 | Discharge Summary ---
- NOTES TO OUTPATIENT PROVIDER Notes to Outpatient Provider: f/u with PCP as needed. Orders not resulted at time of discharge: Pending orders 09/05/17 17:30 Culture,Blood [BC] Stat Culture,Blood,Additional [BC] Stat Date of Encounter: 09/10/17 Time of Encounter: 13:56 - Discharge Diagnosis (1) Leukocytosis Priority: Secondary Status: Acute Qualifiers: Leukocytosis type: unspecified Qualified Code(s): D72.829 - Elevated white blood cell count, unspecified (2) Liver lesion Priority: Primary Status: Acute (3) Abdominal pain Priority: Primary Status: Acute Qualifiers: Abdominal location: right lower quadrant Qualified Code(s): R10.31 - Right lower quadrant pain (4) UTI (urinary tract infection) Priority: Secondary Status: Acute Qualifiers: Urinary tract infection type: site unspecified Hematuria presence: without hematuria Qualified Code(s): N39.0 - Urinary tract infection, site not specified (5) Essential hypertension Priority: Secondary Status: Chronic Hospital course: Ms. Rubio is a 76 year old female with history of hypertension and diabetes presented with generalized weakness and a diffuse abdominal pain for several months. Further workup including abdominal and pelvis CT revealed multiple liver masses and right adrenal mass, concerning for metastases. CT chest did not show any mass. Oncology was consulted and a liver biopsy was recommended. However, patient refuses liver biopsy. While in the hospital, she also was found to have leukocytosis. Extensive workup including blood cultures did not identify any infectious source, although UA was suspicious for UTI. She was treated with IV antibiotics for 2 days, leukocytosis progressively getting worse. It is thought that leukocytosis was malignancy related and antibiotics was DC'd. The provider had a latency discussion with patient and her family about the necessity of liver biopsy. Conclusion of malignancy with metastasis cannot be reached without results of biopsy. It is also possible that the liver lesion could be other pathologies including liver abscess, fungal infection, and other inflammatory disease. Patient and family verbally understand but they decided to proceed to home hospice. After discussed with case management social worker and palliative care, we will discharge patient home with home hospice today. Discharge discussed with: patient, family, social work Time spent discussing smoking cessation with patient: more than 10 minutes - Time Spent with Patient Total time spent providing and/or coordinating discharge services: Greater than 30 minutes - Discharge Medications Prescriptions: Acetaminophen [Tylenol] 500 mg PO Q6HR PRN #60 tablet PRN Reason: Mild Pain/Fever Ibuprofen [Motrin] 600 mg PO Q6HR PRN #60 tablet PRN Reason: Mild To Moderate Pain LORazepam Oral Conc [Ativan Oral Conc] 0.5 - 1 mg PO Q6HR PRN 4 Days #15 mls PRN Reason: Anxiety OxyCODONE Immed Rel [Roxicodone 5 MG] 5 mg PO Q6HR PRN 4 Days #16 tablet PRN Reason: abd pain Prochlorperazine Maleate [Compazine] 10 mg PO Q6HR PRN #14 tablet PRN Reason: Nausea Lidocaine 1 each TP DAILY #10 adh..patch MORPHINE SUL Oral CONC [Roxanol Oral Conc] 2.5 - 5 mg SL Q4H PRN 4 Days #15 ml PRN Reason: breakthrough pain/dyspnea Sennosides/Docusate Sodium [Senna Plus] 1 each PO DAILY #4 tablet Home Medications: Garlic [Odor Free Garlic] 100 mg PO BID 10/31/15 [History] Glimepiride [Amaryl] 0.5 mg PO BID 10/31/15 [History] Glucosamine HCl/Chondr [place] A Na [[facility] Glucosamine-Chondr Tablet] 1 each PO BID 11/10 [History] Metoprolol [Lopressor] 50 mg PO BID 10/31/15 [History] Meclizine HCl [Verticalm] 25 mg PO TID PRN 09/05/17 [History] Acetaminophen [Tylenol] 500 mg PO Q6HR PRN #60 tablet 09/10/17 [Rx] Ibuprofen [Motrin] 600 mg PO Q6HR PRN #60 tablet 09/10/17 [Rx] LORazepam Oral Conc [Ativan Oral Conc] 0.5 - 1 mg PO Q6HR PRN 4 Days #15 mls [Rx] Lidocaine 1 each TP DAILY #10 adh..patch 09/10/17 [Rx] MORPHINE SUL Oral CONC [Roxanol Oral Conc] 2.5 - 5 mg SL Q4H PRN 4 Days #15 ml 09/10/17 [Rx] Nystatin POWDER [Nystop] 1 appl TP TID bottle 09/10/17 [Rx] OxyCODONE Immed Rel [Roxicodone 5 MG] 5 mg PO Q6HR PRN 4 Days #16 tablet [Rx] Prochlorperazine Maleate [Compazine] 10 mg PO Q6HR PRN #14 tablet 09/10/17 [Rx] Sennosides/Docusate Sodium [Senna Plus] 1 each PO DAILY #4 tablet 09/10/17 [Rx] Allergies/Adverse Reactions: 3 Allergy/AdvReac Type Severity Reaction Status Date / Time Sulfa (Sulfonamide Allergy Hives Verified 09/05/17 11:46 Antibiotics) codeine AdvReac Hallucinati Verified 09/05/17 11:46 ng Date of admission: 09/04/17 23:48 Primary care physician: Huy Jack MD Consults: 09/05/17 13:47 Consult to Physical Therapy [CONS] Routine Comment: Evaluate, develop and implement POC Reason for Consult: increasing weakness. Patient can't get up and go to the bathroom even with her walker. She has to have help getting up off the toilet and getting to the toilet and her is becoming unable to help her. 09/05/17 13:50 Consult to Occupational Therapy [CONS] Routine Comment: Evaluate, develop and implement POC Reason for Consult: increasing weakness. Patient can't get up and go to the bathroom even with her walker. She has to have help getting up off the toilet and getting to the toilet and her is becoming unable to help her. Consult to Intervention Specialist [CONS] Routine Reason for SW Consult: increasing weakness. Patient can't get up and go to the bathroom even with her walker. She has to have help getting up off the toilet and getting to the toilet and her is becoming unable to help her. Possible placement for rehab 09/06/17 13:25 Consult to Oncology [CONS] Routine Consulting Provider: [facility] Reason for Consult: possible liver malignancy Call Completed: Yes 09/08/17 09:10 Consult to Palliative Care [CONS] Routine Comment: Consulting Provider: Palliative Care Yudy Reason for Consult: goals of care, hospice, discharge planning Call Completed: Yes Anticipated date of discharge: 09/10/17 - Constitutional Vitals: Temp Pulse Resp BP Pulse Ox 97.2 F L 71 16 147/73 94 09/10/17 11:25 09/10/17 11:25 09/10/17 11:25 09/10/17 11:25 09/10/17 11:25 General appearance: Present: cooperative, A&O X 3, morbidly obese, answers questions appropriately Exam: PHYSICAL EXAMINATION: GENERAL APPEARANCE: The patient is alert, oriented and in no acute distress. HEENT: Head is normocephalic. The sinuses are nontender. Pupils are equal and reactive. The nares are patent. Oropharynx clear without lesions. NECK: Supple without lymphadenopathy. HEART: Regular rate and rhythm. LUNGS: No crackles or wheezes are heard. ABDOMEN: Soft, diffusely tender, nondistended with good bowel sounds heard. Inguinal area is normal. EXTREMITIES: Without cyanosis, clubbing or edema. NEUROLOGICAL: Gross nonfocal. SKIN: Warm and dry without any rash. - Patient Status Disposition: Hospice - Home Condition: Fair Functional capacity at discharge: uses cane/walker Overall status at discharge: patient is not back to baseline - Ambulatory Orders Ambulatory Orders: Consult to Hospice Referral [CONS] Time Frame: 3 Months, Facility: [facility], Location: Home Health Services - Discharge Instructions Follow Up With: Huy Jack MD [Primary Care Provider] - 09/17/17 10:15 am - Diet and Activity Activity: increase activity as tolerated Diet: diabetic diet
[2017-09-10] MEDS: *HR* OxyCODONE Immed Rel 5 MG TABLET PO PRN (15:30)
[2017-09-10] MEDS ORDERED: Aminoglycoside Consult 1 EACH MC ONE (18:55)
--- NOTE | 2017-09-17 14:43 | Electrocardiograph Report ---
[place] [address] Test Date: 2017-09-08 Pat Name: Bianka Rubio Department: 113 Room: 3B14 Gender: F Contracting Manager: : [id number] Requested By: Faith Juarez Order Number: [id number] Reading MD: Tank Menendez DO Measurements Intervals [place] Rate: 192 P: CO: 0 QRS: -47 QRSD: 246 T: 98 QT: 312 QTc: 410 Interpretive Statements ATRIAL FIBRILLATION WITH RAPID VENTRICULAR RESPONSE MARKED LEFT AXIS DEVIATION LEFT BUNDLE BRANCH BLOCK Electronically Signed On 09-17-2017 14:42:02 EDT by Tank Menendez DO
== END 2017-09-10 18:56 | disposition hospice, home (50) ==
LOC: EMEROO 20:14 → 3BNU 20:14
PROVIDERS: ADMIT Pediatrics; ATTEND Registered Nurse